=== PATIENT | female | born 1960 | race Hispanic/Latino ===

== ENCOUNTER 2018-05-21 09:55 | Emergency (ER) | payer OTHER ==
--- OUTSIDE RECORDS SUMMARY | 2018-05-21 09:57 | XMS REPORT | Clinical Summary ---
:1960 Author Organization [facility] Address [address] [place] [address] Care Team Providers Name Role Phone Alexandrea Pandey Primary Care Provider Allergies Active Allergy Reactions Severity Noted Date Comments Hydrocodone 11/02/2016 Current Medications Prescription Sig. Disp. Refills Start Date End Date Status lisinopril 08/12/2016 Active (PRINIVIL,ZESTRIL) 5 mg tablet levothyroxine 07/28/2016 Active (SYNTHROID, LEVOXYL) 25 mcg tablet [id number]-ru 10/21/2016 Active xamethasone (MAXITROL) 3.5mg/mL-10,000 unit/mL-0.1 % ophthalmic suspension naproxen (NAPROSYN) Take 1 tablet 60 tablet 0 11/02/2016 11/02/2017 500 MG (500 mg total) tabletIndications: by mouth 2 (two) Left knee pain, times a day. unspecified chronicity traMADol (ULTRAM) 50 Take 1 tablet 30 tablet 0 04/27/2018 05/07/2018 mg tablet (50 mg total) by mouth every 6 (six) hours as needed for moderate pain for up to 10 days. Active Problems Problem Noted Date Arthritis of both knees 05/13/2017 Chronic pain of both knees 05/13/2017 Internal derangement of knee 11/02/2016 Primary osteoarthritis of left knee 11/02/2016 Left knee pain 11/02/2016 Arthritis 11/02/2016 Encounters Date Type Specialty Care Team Description 05/16/2018 Hospital Encounter Radiology Vince Benítez, Internal derangement MD of right knee 04/28/2018 Procedure Pass Radiology 04/27/2018 Office Visit Orthopedic Surgery Vince Benítez, Internal derangement of right knee (Primary Dx); Arthritis of both knees; Internal derangement of left knee after 05/20/2017 Family History Medical History Relation Name Comments Diabetes Brother Cancer Mother Relation Name Status Comments Brother Mother Social History Tobacco Use Types Packs/Day Years Used Date Passive Smoke Exposure - Never Smoker Sex Assigned at Date Recorded Not on file Last Filed Vital Signs Not on file Plan of Treatment Date Type Specialty Care Team Description 05/25/2018 Office Visit Orthopedic Surgery Vince Benítez MD [address] [place] [address] [place] [address] [phone] Health Maintenance Due Date Last Done Comments CERVICAL CANCER SCREENING 1982 BREAST CANCER SCREENING 2011 COLON CANCER SCREENING 2011 SHINGRIX VACCINE (#1) 2011 INFLUENZA VACCINE 02/23/2018 Procedures Procedure Name Priority Date/Time Associated Diagnosis Comments MRI KNEE WO Routine 05/16/2018 1:19 PM Internal derangement Results for this CONTRAST RIGHT CDT of right knee procedure are in the results section. after 05/20/2017 Results MRI Knee Right Wo Contrast (05/16/2018 1:19 PM) Narrative Performed At EXAMINATION:MRI KNEE WO CONTRAST RIGHT [facility] CLINICAL HISTORY:M23.91 Unspecified internal derangement of right knee, painpopping knee TECHNIQUE:Multiplanar multisequence MR imaging of the knee was performed without contrast. COMPARISON:05/12/2017 FINDINGS: 1. Cruciate ligaments: Mild mucinous degeneration of the anterior cruciate ligament without evidence of a tear. Posterior cruciate ligament is intact. Ganglion formation along the length of the mid substance of the posterior cruciate ligament and a typical location for ganglion cyst formation. 2. Collateral ligaments: Medial collateral ligament is intact. Fibular collateral ligament and biceps femoris tendon are intact. 3. Medial Meniscus: Complex degenerative tear of the posterior horn extending from just medial to the root attachment into the body of the medial meniscus. The meniscus is slightly extruded and there is maceration of the body with tearing of the coronary ligaments of the deep MCL complex. No definite displaced meniscal tissue is seen within the notch or in the gutter. Small cysts are noted along the posterior horn. 4. 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 There is multifocal grade IV chondromalacia of the posterior cartilage of the medial femoral condyle with cystic change and edema of the subchondral bone plate. 5. Lateral Meniscus: Degenerative nondisplaced horizontal tear extending to the inferior articular surface of the posterior horn of the lateral meniscus as seen on series 5, image 14 and into the lateral meniscal body. This is superimposed on a background of diffuse intrasubstance degeneration. Free edge radial tearing of the body. 6. Lateral Compartment Cartilage: Diffuse low-grade chondral loss with some more moderate partial thickness chondromalacia involving the posterior cartilage of the lateral femoral condyle as seen on series 4, image 19 and small high-grade chondral fissures of the central tibial plateau cartilage. Minimal edema is noted deep to the intercondylar eminence. 7. Patellofemoral Compartment: Small high-grade chondral fissures involving the median ridge and paramedian lateral facet as seen on series 3, image 9. Small foci of high-grade chondromalacia involving the superolateral trochlear cartilage. 8. Extensor mechanism: Patella gabriel. Edema in the superolateral aspect of Hoffa 's fat pad. Extensor mechanism demonstrates tendinosis, particularly of the quadriceps tendon without evidence of a tear.] Lower intact. 9. Effusion: Small to moderate knee joint effusion. Diffuse synovitis. No discrete intra-articular body is seen within the joint. 10. Bone marrow: Bone marrow edema as above. No definite suspicious bony lesion. 11. Soft tissues: Surgical semitendinosus tendinosis at the posteromedial corner of the knee. Ganglion cyst formation at the origin of the medial head of gastrocnemius. IMPRESSION: 1.Moderate medial femorotibial osteoarthrosis with high-grade chondromalacia, subchondral bone plate edema, and a degenerative extruded medial meniscal tear. 2.Mild lateral femorotibial osteoarthrosis with a degenerative nondisplaced lateral meniscal tear. 3.Mild patellofemoral osteoarthrosis. 4.Patella gabriel with extensor mechanism tendinosis and superolateral Hoffa' s fat pad edema which can be seen with lateral femoral condylar patellar friction syndrome. 5.Moderate size knee joint effusion with diffuse synovitis. [facility]-[id number] Procedure Note [facility], Radiology Results Incoming - 05/16/2018 1:47 PM CDT EXAMINATION: MRI KNEE WO CONTRAST RIGHT CLINICAL HISTORY: M23.91 Unspecified internal derangement of right knee, pain popping knee TECHNIQUE: Multiplanar multisequence MR imaging of the knee was performed without contrast. COMPARISON: 05/12/2017 FINDINGS: 1. Cruciate ligaments: Mild mucinous degeneration of the anterior cruciate ligament without evidence of a tear. Posterior cruciate ligament is intact. Ganglion formation along the length of the mid substance of the posterior cruciate ligament and a typical location for ganglion cyst formation. 2. Collateral ligaments: Medial collateral ligament is intact. Fibular collateral ligament and biceps femoris tendon are intact. 3. Medial Meniscus: Complex degenerative tear of the posterior horn extending from just medial to the root attachment into the body of the medial meniscus. The meniscus is slightly extruded and there is maceration of the body with tearing of the coronary ligaments of the deep MCL complex. No definite displaced meniscal tissue is seen within the notch or in the gutter. Small cysts are noted along the posterior horn. 4. 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 There is multifocal grade IV chondromalacia of the posterior cartilage of the medial femoral condyle with cystic change and edema of the subchondral bone plate. 5. Lateral Meniscus: Degenerative nondisplaced horizontal tear extending to the inferior articular surface of the posterior horn of the lateral meniscus as seen on series 5, image 14 and into the lateral meniscal body. This is superimposed on a background of diffuse intrasubstance degeneration. Free edge radial tearing of the body. 6. Lateral Compartment Cartilage: Diffuse low-grade chondral loss with some more moderate partial thickness chondromalacia involving the posterior cartilage of the lateral femoral condyle as seen on series 4, image 19 and small high-grade chondral fissures of the central tibial plateau cartilage. Minimal edema is noted deep to the intercondylar eminence. 7. Patellofemoral Compartment: Small high-grade chondral fissures involving the median ridge and paramedian lateral facet as seen on series 3, image 9. Small foci of high-grade chondromalacia involving the superolateral trochlear cartilage. 8. Extensor mechanism: Patella gabriel. Edema in the superolateral aspect of Hoffa 's fat pad. Extensor mechanism demonstrates tendinosis, particularly of the quadriceps tendon without evidence of a tear.] Lower intact. 9. Effusion: Small to moderate knee joint effusion. Diffuse synovitis. No discrete intra-articular body is seen within the joint. 10. Bone marrow: Bone marrow edema as above. No definite suspicious bony lesion. 11. Soft tissues: Surgical semitendinosus tendinosis at the posteromedial corner of the knee. Ganglion cyst formation at the origin of the medial head of gastrocnemius. IMPRESSION: 1. Moderate medial femorotibial osteoarthrosis with high-grade chondromalacia , subchondral bone plate edema, and a degenerative extruded medial meniscal tear. 2. Mild lateral femorotibial osteoarthrosis with a degenerative nondisplaced lateral meniscal tear. 3. Mild patellofemoral osteoarthrosis. 4. Patella gabriel with extensor mechanism tendinosis and superolateral Hoffa's fat pad edema which can be seen with lateral femoral condylar patellar friction syndrome. 5. Moderate size knee joint effusion with diffuse synovitis. [facility]-[id number] Performing Organization Address City/State/Zipcode Phone Number [facility] [address] [place] [address] after 05/20/2017 Insurance Payer Benefit Plan / Group Subscriber ID Type Phone Address [facility]WORK xxxxxxxxxxx [facility] [place] [phone] [place] [address]
--- NOTE | 2018-05-21 13:00 | ER ---
Nurse's Notes [facility] Name: Ladan Greer Age: 58 yrs Sex: Female : 1960 Arrival Date: 05/21/2018 Time: 09:57 Bed Waiting Private MD: Diagnosis: Presentation: 05/21 10:04 Presenting complaint: Patient states: Cough, congestion, body aches, since this AM with aj vomiting x 2 episodes this AM. Transition of care: patient was not received from another setting of care. Onset of symptoms was May 21, 2018. Risk Assessment: Do you want to hurt yourself or someone else? Patient reports no desire to harm self or others. Initial Sepsis Screen: Does the patient meet any 2 criteria? No. Patient's initial sepsis screen is negative. Does the patient have a suspected source of infection? No. Patient's initial sepsis screen is negative. Care prior to arrival: None. 10:04 Method Of Arrival: Wheelchair aj 10:04 Acuity: VENITA 3 aj Triage Assessment: 10:06 General: Appears in no apparent distress. comfortable, Behavior is calm, cooperative, aj appropriate for age. Pain: Denies pain. EENT: Reports nasal congestion nasal discharge. Neuro: Level of Consciousness is awake, alert, obeys commands, Oriented to person, place, time, situation, Appropriate for age. Respiratory: Airway is patent Respiratory effort is even, unlabored, Respiratory pattern is regular, symmetrical. GI: Reports vomiting. Derm: Skin is intact, is healthy with good turgor, Skin is pink, warm \T\ dry. normal. Historical: - Allergies: 10:06 Hydrocodone-Acetaminophen; aj - Home Meds: 10:06 None [Active]; aj - PMHx: 10:06 Hypothyroidism; aj - PSHx: 10:06 None; aj - Immunization history:: Adult Immunizations up to date. - Social history:: Smoking status: Patient/guardian denies using tobacco. - Ebola Screening: : Patient negative for fever greater than or equal to 101.5 degrees Fahrenheit, and additional compatible Ebola Virus Disease symptoms Patient denies exposure to infectious person Patient denies travel to an Ebola-affected area in the 21 days before illness onset No symptoms or risks identified at this time. Vital Signs: 10:06 BP 158 / 88; Pulse 79; Resp 16; Temp 98.7(O); Pulse Ox 99% on R/A; Weight 67.13 kg; aj Height 5 ft. 2 in. (157.48 cm); 10:06 Body Mass Index 27.07 (67.13 kg, 157.48 cm) aj ED Course: 09:57 Patient arrived in ED. rg4 10:05 Triage completed. aj 10:06 Arm band placed on left wrist. Patient placed in waiting room, Patient notified of wait aj time. Labs ordered per protocol. 12:05 Patient's name was called from ER lobby. No response. aj 12:14 Patient's name was called from ER lobby. No response. aj 12:59 Chuy Correa MD is Attending Physician. aj 12:59 Patient's name was called from ER lobby. No response. aj Administered Medications: No medications were administered Outcome: 12:59 Eloped from waiting room, before seeing physician Time discovered patient gone: April aj 2017 at 12:59 12:59 Patient left the ED. aj Signatures: Arabella Zuluaga, RN RN Kalani James rg4
== END 2018-05-21 12:59 | disposition left against medical advice (07) ==
LOC: ER 09:55
DX: Z53.21 Procedure and treatment not carried out due to patient leaving prior to being seen by health care provider (principal)
CPT/HCPCS: 87804; 99282

== ENCOUNTER 2022-01-02 09:52 | Emergency (ER) | payer OTHER ==
--- OUTSIDE RECORDS SUMMARY | 2022-01-02 09:54 | XMS REPORT | Clinical Summary ---
:1960 Author Organization [facility] MD [place] Address [address] [place] [address] Care Team Providers Name Role Phone Jazzmine Conley MD Primary Care Provider [phone] Carolyn Martinez MD Unavailable Allergies Active Allergy Reactions Severity Noted Date Comments Hydrocodone Rash Low 02/11/2021 Medications Medication Sig Dispensed Refills Start Date End Date Status cholecalciferol, Take 400 Units by 0 Active vitamin D3, (Vitamin mouth. D3) 5,000 units tab tablet Active Problems Problem Noted Date Abnormal findings on diagnostic imaging of breast 01/23 Overview: Imaging performed at [facility]: 12/31/2020 [facility] - 6-8 mm LEFT nodular density appearing slightly larger than 2019. - No microcalcifications. - No susipcious right breast findings. - LDMMG in 6 months recommended. Encounters Date Type Specialty Care Team Description 02/11/2021 Ancillary Procedure Radiology Brandee Conley Cancer Jazzmine Awad MD 02/11/2021 Ancillary Procedure Radiology Brandee Conley Cancer Jazzmine Awad MD 02/11/2021 Office Visit Breast Surgical Brandee Conley Abnormal f indings on Oncology vaishnavi Brooks robles garrett of breast (Primary Dx) 02/11/2021 [facility] Patient Access Services 02/11/2021 Ancillary Procedure Radiology Jerardo Webb Abnorma [place] findings on PA diagnostic imag ing of breast 02/11/2021 Ancillary Procedure Radiology Jerardo Webb Abnorma l findings on PA diagnostic imag ing of breast 02/11/2021 Travel 02/10/2021 Orders Only Breast Surgical Brandee Conley Oncology Jazzmine Awad MD 02/10/2021 Orders Only Breast Surgical Jerardo Webb, Saji fi ndings on Oncology DEMETRI diagnostic imag ing of breast (Primary Dx) 02/09/2021 Orders Only Breast Surgical Brandee Conley Oncology Jazzmine Awad MD after 01/02/2021 Immunizations Name Administration Dates Next Due Scarlett SARS-CoV-2 Vaccination 10/23/2020 Surgical History Surgery Date Site/Laterality Comments ANTERIOR CRUCIATE LIGAMENT REPAIR Left HAND SURGERY Right Medical History Medical History Date Comments Hypertension Family History Medical History Relation Name Comments Liver cancer Mother Uterine cancer Mother Relation Name Status Comments Mother Social History Tobacco Use Types Packs/Day Years Used Date Never Smoker Smokeless Tobacco: Never Used Alcohol Use Standard Drinks/Week Comments Never 0 (1 standard drink = 0.6 oz pure alcoho l) Alcohol Habits Answer Date Recorded How often do you have a drink containing alcohol? Never 02/13/2021 How many drinks containing alcohol do you have on a typical Not asked day when you are drinking? How often do you have six or more drinks on one occasion? No t asked Comment: Not asked Sex Assigned at Date Recorded Not on file Job Start Date Occupation Industry Not on file Not on file Not on file Obstetrics History Para Term AB IAB SAB Ectopic Multiple Living Live Births 4 3 Date Outcome GA Total Labor/2nd/3rd Weight Sex Delivery Anes PTL Victoria A 1 A5 Name Clin Labor Para Para Para Comments Menarche - age 14 Menopause - age 54, natural Parity - age 17, - 5 years OCP - none Hormones - none Last Filed Vital Signs Vital Sign Reading Time Taken Comments Blood Pressure 144/84 02/11/2021 1:10 PM CDT Pulse 88 02/11/2021 1:10 PM CDT Temperature 37.1 C (98.8 F) 02/11/2021 1:10 PM CDT Respiratory Rate - - Oxygen Saturation 99% 02/11/2021 1:10 PM CDT Inhaled Oxygen Concentration - - Weight 68.9 kg (151 lb 14.4 oz) 02/11/2021 1:10 PM CDT Height 155 cm (5' 1.02") 02/11/2021 1:10 PM CDT Body Mass Index 28.68 02/11/2021 1:10 PM CDT Plan of Treatment Health Maintenance Due Date Last Done Comments COVID-19 Vaccination (2 - Moderna 3-dose series) 11/20/2020 10/23/2020 Procedures Procedure Name Priority Date/Time Associated Comments Diagnosis US BREAST COMPLETE Routine 02/11/2021 10:06 AM Abnormal findin gs Results for this BILATERAL CDT on diagnostic procedure are in imaging of breast the result s section. MAMMO DIGITAL Routine 02/11/2021 8:58 AM Abnormal findings Re sults for this DIAGNOSTIC BILATERAL CDT on diagnostic proced ure are in [facility] imaging of breast the result s section. after 01/02/2021 Results US Breast Complete - Bilateral (02/11/2021 10:06 AM CDT) Anatomical Region Laterality Modality Breast Bilateral Ultrasound Specimen (Source) Anatomical Collection Method Collection Time Re ceived Time Location / / Volume Laterality 02/11/2021 10:43 AM CDT Impressions 02/11/2021 10:43 AM CDT There is no sonographic evidence of malignancy. Follow-up mammogram in 1 year is recomme nded. BI-RADS Category 2: Benign Finding(s) Narrative 02/11/2021 10:43 AM CDT CLINICAL INDICATION: Prior abnormal screening mammogram. FILMS COMPARED: The present examination has been compare d to a prior imaging study performed at [facility] on 02/11/2021. TECHNIQUE: Real-time sonographic imaging of both br easts (including all 4 quadrants and retroareolar region) was performed. FINDINGS: Tiny benign cysts are present bilaterall y, including a 9 mm cluster of microcysts in the left breast at 2:00, 8 cmfn that corresponds with the index finding from the 12/2020 screening mammo gram. No suspicious findings are present in either breast. I notified the patie nt of the findings and their significance at the completion of today's imaging. Procedure Note Nikolas Delatorre MD - 02/11/2021 CLINICAL INDICATION: Prior abnormal screening mammogram. FILMS COMPARED: The present examination has been compare d to a prior imaging study performed at [facility] on 02/11/2021. TECHNIQUE: Real-time sonographic imaging of both br easts (including all 4 quadrants and retroareolar region) was performed. FINDINGS: Tiny benign cysts are present bilaterall y, including a 9 mm cluster of microcysts in the left breast at 2:00, 8 cmfn that corresponds with the index finding from the 12/2020 screening mammo gram. No suspicious findings are present in either breast. I notified the patien t of the findings and their significance at the completion of today's imaging. IMPRESSION: There is no sonographic evidence of nahid gnancy. Follow-up mammogram in 1 year is recomme nded. BI-RADS Category 2: Benign Finding(s) Jerardo MOSQUERA IMG US ORDERABLES Mammography Digital Diagnostic Bilateral with [place] (02/11/2021 8:58 AM CDT) Anatomical Region Laterality Modality Breast Bilateral Mammography Specimen (Source) Anatomical Collection Method Collection Time Re ceived Time Location / / Volume Laterality 02/11/2021 10:40 AM CDT Impressions 02/11/2021 10:40 AM CDT There is no mammographic evidence of malignancy. Follow-up mammogram in 1 year is recomme nded. BI-RADS Category 2: Benign Finding(s) Narrative 02/11/2021 10:40 AM CDT CLINICAL INDICATION: Abnormal screening mammogram from an out side institution. MAMMO DIGITAL DIAGNOSTIC BILATERAL W [facility]IER O Digital Mammogram evaluated with Compute r Aided Detection (CAD). COMPARISON: The present examination has been compare d to a prior imaging study performed at an outside location on 02/11/2021. FINDINGS: The breasts are heterogeneously dense, w hich may obscure small masses. Bilateral punctate masses represent tiny benign cysts on today's ultrasound (including the index finding from the screening mammogram). There is no suspicious mass, asymmetry, calcifica tion, or distortion in either breast. I notified the patient of these results an d their significance at the completion of today's exam. Tomosynthesis performed in CC and MLO pr ojections. Procedure Note Nikolas Delatorre MD - 02/11/2021 CLINICAL INDICATION: Abnormal screening mammogram from an out side institution. MAMMO DIGITAL DIAGNOSTIC BILATERAL W ELIER O Digital Mammogram evaluated with Compute r Aided Detection (CAD). COMPARISON: The present examination has been compare d to a prior imaging study performed at an outside location on 02/11/2021. FINDINGS: The breasts are heterogeneously dense, w hich may obscure small masses. Bilateral punctate masses represent tiny benign cysts on today's ultrasound (including the index finding from the screening mammogram). There is no suspicious mass, asymmetry, calcifica tion, or distortion in either breast. I notified the patient of these results an d their significance at the completion of today's exam. Tomosynthesis performed in CC and MLO pr ojections. IMPRESSION: There is no mammographic evidence of mal ignancy. Follow-up mammogram in 1 year is recomme nded. BI-RADS Category 2: Benign Finding(s) Jerardo MOSQUERA IMG MAMMOGRAPHY ORDERABLES after 01/02/2021 Insurance Payer Benefit Plan / Subscriber ID Effective Dates Phone Addre ss Type Group [employer] [facility] [id number] 2015-Present [id number] [place] [address] [address] [place], [place] [id number] Ladan Greer Personal/Family Self [address] [place] [address] ([address] [place], [place] [id number] Care Teams Surfacing Technician Relationship Specialty Start Date End Date Brandee Conley PCP - General Breast Surgery 01/24/21 MD Ritesh [address] [place] [id number] Rachelle Martinez, PCP - External Referring Obstetrics/Gynecology 01/24/[address] [place] [id number]
--- OUTSIDE RECORDS SUMMARY | 2022-01-02 09:56 | XMS REPORT | Continuity of Care Document ---
:1960 Author Organization [facility] t Address [address] [place] [address] Care Team Providers Name Role Phone [phone] Primary Care Physician Unavailable SYSTEM, NOT IN Attending Clinician Unavailable SEAN Attending Clinician Unavailable Sean PARRA Attending Clinician Pob, Lab Main Attending Clinician Unavailable Doctor Unassigned, Name Attending Clinician Unavailable SADE Attending Clinician Unavailable Meliza PARRA Attending Clinician MELIZA Attending Clinician Unavailable COLLEEN Attending Clinician Unavailable RADIOLOGY Attending Clinician Unavailable Yessi PARRA Attending Clinician YESSI Attending Clinician Unavailable Jazzmine Conley MD Attending Clinician [phone] JAZZMINE CONLEY Attending Clinician Unavailable Frandy MOSQUERA Attending Clinician FRANDY Attending Clinician Unavailable Armani Dill Attending Clinician Elton Melendez MD Attending Clinician Elton MELENDEZ Attending Clinician Unavailable Armani KIM Attending Clinician Unavailable SEAN Kentitting Clinician Unavailable Payers Payer Name Policy Type Policy Number Effective Date Expiration Date Armani CABALLERO II [id number] 2015 00:00:00 Problems Condition Condition Condition Status Onset Resolution Last Treating Co mments Source Name Details Category Date Date Treatment Clinician Date Abnormal Abnormal Disease Active 2021-0 Overview: Un lexus findings findings 7-19 Formattin ity of on on 00:00: g of this [place] diagnostic diagnostic 00 note imaging of imaging of might be Anderso breast breast different n from the Cancer original. Center Imaging performed at [facility] t: 1 [facility]- 6-8 mm LEFT nodular density appearing slightly larger than 2019.- No microcalc ification s.- No susipciou s right breast findings. - LDMMG in 6 months recommend ed. Chest pain Chest pain Disease Active 2014-07 U nivers 09-21 ity of 00:00: [place] 00 Medical Branch Allergies, Adverse Reactions, Alerts Allergy Allergy Status Severity Reaction(s) Onset Inactive Treating Comm ents Source Name Type Date Date Clinician Hydrocod Propensi Active Rash Univer s one ty to 02-11 ity of adverse 00:00: [place] reaction 00 MD [facility] HYDROCOD DRUG Active ITCHING 2014-07 Univers ONE INGREDI 09-21 ity of 00:00: [place] 00 Medical Branch Hydrocod Propensi Active Itching 2014-07 Unive rs one ty to 09-21 ity of adverse 00:00: [place] reaction 00 Medical s Branch Family History Family Member Diagnosis Comments Start Date Stop Date Source Natural mother Liver cancer [facility] [place] [facility] [place] [facility] Social History Social Habit Start Date Stop Date Quantity Comments Source History [facility] o [facility] Alcohol Std [facility] History [facility] University o f Alcohol Binge [facility] History [facility] o f Alcohol Comment [place] [facility] Exposure to 2021-11-03 2021-11-13 Not sure [facility] SARS-CoV-2 00:00:00 15:36:[address] [facility] [place] (event) Branch Tobacco use and 2021-02-13 2021-02-13 Smokeless tobacco Un iversity of exposure 00:00:00 00:00:00 non-user [facility] Alcohol intake 2021-02-13 2021-02-13 Lifetime University of 00:00:00 00:00:00 non-drinker [facility] (finding) [facility] History SDOH 2021-02-13 2021-02-13 1 University o f Alcohol Frequency 00:00:00 00:00:00 [facility] [place] [facility] Sex Assigned At [birth year] Universit y of 00:00:00 00:00:00 [facility] Smoking Status Start Date Stop Date Source Never smoker [facility] Medical Branch Medications Ordered Filled Start Stop Current Ordering Indication Dosage Frequency Signature Comments Components Source Medication Medication Date Date Medication? Clinician (SIG) Name Name cholecalcif Yes 400U Take 400 Un lexus lyndsay, 7-20 Units by ity of vitamin D3, 13:17: mouth. Donald s (Vitamin 46 D3) 5,000 Anderso units tab n tablet Cancer Center triamcinolo 2020- No 40mg Unive rs ne 09-16 ity of acetonide 22:00: 20:54 [place] (KENALOG) 00 :00 Medical injection Branch 40 mg triamcinolo 2020- No 40mg 40 mg, Uni vers ne 09-16 Intra-jacqueline ity of acetonide 22:00: 20:54 [place], [place] (KENALOG) 00 :00 ONCE, 1 Medical injection dose, Mon Branc h 40 mg 09/16/20 at 1600, Routine triamcinolo 2020- No 40mg Unive rs ne 09-16 ity of acetonide 22:00: 20:54 [place] (KENALOG) 00 :00 Medical injection Branch 40 mg triamcinolo 2020- No 40mg 40 mg, Uni vers ne 09-16 Intra-jacqueline ity of acetonide 22:00: 20:54 [place], [place] (KENALOG) 00 :00 ONCE, 1 Medical injection dose, Mon Branc h 40 mg 09/16/20 at 1600, Routine levothyroxi 2019-07 Yes 50ug Take 50 Uni vers ne 0-26 mcg by ity of (SYNTHROID) 19:50: mouth [place] 50 mcg 10 every Medical tablet morning. Branch levothyroxi 2019-07 Yes 50ug Take 50 Uni vers ne 0-26 mcg by ity of (SYNTHROID) 19:50: mouth [place] 50 mcg 10 every Medical tablet morning. Branch levothyroxi 2019-07 Yes 50ug Take 50 Uni vers ne 0-26 mcg by ity of (SYNTHROID) 19:50: mouth [place] 50 mcg 10 every Medical tablet morning. Branch levothyroxi 2019-07 Yes 50ug Take 50 Uni vers ne 0-26 mcg by ity of (SYNTHROID) 19:50: mouth [place] 50 mcg 10 every Medical tablet morning. Branch levothyroxi 2019-07 Yes 50ug Take 50 Uni vers ne 0-26 mcg by ity of (SYNTHROID) 19:50: mouth [place] 50 mcg 10 every Medical tablet morning. Branch levothyroxi 2019-07 Yes 50ug Take 50 Uni vers ne 0-26 mcg by ity of (SYNTHROID) 19:50: mouth [place] 50 mcg 10 every Medical tablet morning. Branch levothyroxi 2019-07 Yes 50ug Take 50 Uni vers ne 0-26 mcg by ity of (SYNTHROID) 19:50: mouth [place] 50 mcg 10 every Medical tablet morning. Branch levothyroxi 2019-07 Yes 50ug Take 50 Uni vers ne 0-26 mcg by ity of (SYNTHROID) 19:50: mouth [place] 50 mcg 10 every Medical tablet morning. Branch levothyroxi 2019-07 Yes 50ug Take 50 Uni vers ne 0-26 mcg by ity of (SYNTHROID) 19:50: mouth [place] 50 mcg 10 every Medical tablet morning. Branch levothyroxi 2019-07 Yes 50ug Take 50 Uni vers ne 0-26 mcg by ity of (SYNTHROID) 19:50: mouth [place] 50 mcg 10 every Medical tablet morning. Branch levothyroxi 2019-07 Yes 50ug Take 50 Uni vers ne 0-26 mcg by ity of (SYNTHROID) 19:50: mouth [place] 50 mcg 10 every Medical tablet morning. Branch levothyroxi 2019-07 Yes 50ug Take 50 Uni vers ne 0-26 mcg by ity of (SYNTHROID) 19:50: mouth [place] 50 mcg 10 every Medical tablet morning. Branch levothyroxi 2019-07 Yes 50ug Take 50 Uni vers ne 0-26 mcg by ity of (SYNTHROID) 19:50: mouth [place] 50 mcg 10 every Medical tablet morning. Branch levothyroxi 2019-07 Yes 50ug Take 50 Uni vers ne 0-26 mcg by ity of (SYNTHROID) 19:50: mouth [place] 50 mcg 10 every Medical tablet morning. Branch levothyroxi 2019-07 Yes 50ug Take 50 Uni vers ne 0-26 mcg by ity of (SYNTHROID) 19:50: mouth [place] 50 mcg 10 every Medical tablet morning. Branch levothyroxi 2019-07 Yes 50ug Take 50 Uni vers ne 0-26 mcg by ity of (SYNTHROID) 19:50: mouth [place] 50 mcg 10 every Medical tablet morning. Branch levothyroxi 2019-07 Yes 50ug Take 50 Uni vers ne 0-26 mcg by ity of (SYNTHROID) 19:50: mouth [place] 50 mcg 10 every Medical tablet morning. Branch levothyroxi 2019-07 Yes 50ug Take 50 Uni vers ne 0-26 mcg by ity of (SYNTHROID) 19:50: mouth [place] 50 mcg 10 every Medical tablet morning. Branch levothyroxi 2019-07 Yes 50ug Take 50 Uni vers ne 0-26 mcg by ity of (SYNTHROID) 19:50: mouth [place] 50 mcg 10 every Medical tablet morning. Branch levothyroxi 2019-07 Yes 50ug Take 50 Uni vers ne 0-26 mcg by ity of (SYNTHROID) 19:50: mouth [place] 50 mcg 10 every Medical tablet morning. Branch levothyroxi 2019-07 Yes 50ug Take 50 Uni vers ne 0-26 mcg by ity of (SYNTHROID) 19:50: mouth [place] 50 mcg 10 every Medical tablet morning. Branch levothyroxi 2019-07 Yes 50ug Take 50 Uni vers ne 0-26 mcg by ity of (SYNTHROID) 19:50: mouth [place] 50 mcg 10 every Medical tablet morning. Branch levothyroxi 2019-07 Yes 50ug Take 50 Uni vers ne 0-26 mcg by ity of (SYNTHROID) 19:50: mouth [place] 50 mcg 10 every Medical tablet morning. Branch levothyroxi 2019-07 Yes 50ug Take 50 Uni vers ne 0-26 mcg by ity of (SYNTHROID) 19:50: mouth [place] 50 mcg 10 every Medical tablet morning. Branch levothyroxi 2019-07 Yes 50ug Take 50 Uni vers ne 0-26 mcg by ity of (SYNTHROID) 19:50: mouth [place] 50 mcg 10 every Medical tablet morning. Branch levothyroxi 2019-07 Yes 50ug Take 50 Uni vers ne 0-26 mcg by ity of (SYNTHROID) 19:50: mouth [place] 50 mcg 10 every Medical tablet morning. Branch levothyroxi 2019- Yes 50ug Take 50 Uni vers ne 0-26 mcg by ity of (SYNTHROID) 19:50: mouth [place] 50 mcg 10 every Medical tablet morning. Branch levothyroxi 2019-07 Yes 50ug Take 50 Uni vers ne 0-26 mcg by ity of (SYNTHROID) 19:50: mouth [place] 50 mcg 10 every Medical tablet morning. Branch levothyroxi 2019-07 Yes 50ug Take 50 Uni vers ne 0-26 mcg by ity of (SYNTHROID) 19:50: mouth [place] 50 mcg 10 every Medical tablet morning. Branch levothyroxi 2019-07 Yes 50ug Take 50 Uni vers ne 0-26 mcg by ity of (SYNTHROID) 19:50: mouth [place] 50 mcg 10 every Medical tablet morning. Branch levothyroxi 2019-07 Yes 50ug Take 50 Uni vers ne 0-26 mcg by ity of (SYNTHROID) 19:50: mouth [place] 50 mcg 10 every Medical tablet morning. Branch levothyroxi 2019-07 Yes 50ug Take 50 Uni vers ne 0-26 mcg by ity of (SYNTHROID) 19:50: mouth [place] 50 mcg 10 every Medical tablet morning. Branch levothyroxi 2019-07 Yes 50ug Take 50 Uni vers ne 0-26 mcg by ity of (SYNTHROID) 14:50: mouth [place] 50 mcg 10 every Medical tablet morning. Branch levothyroxi 2019-07 Yes 50ug Take 50 Uni vers ne 0-26 mcg by ity of (SYNTHROID) 14:50: mouth [place] 50 mcg 10 every Medical tablet morning. Branch levothyroxi 2019-07 Yes 50ug Take 50 Uni vers ne 0-26 mcg by ity of (SYNTHROID) 14:50: mouth [place] 50 mcg 10 every Medical tablet morning. Branch levothyroxi 2019-07 Yes 50ug Take 50 Uni vers ne 0-26 mcg by ity of (SYNTHROID) 14:50: mouth [place] 50 mcg 10 every Medical tablet morning. Branch levothyroxi 2019-07 Yes 50ug Take 50 Uni vers ne 0-26 mcg by ity of (SYNTHROID) 14:50: mouth [place] 50 mcg 10 every Medical tablet morning. Branch levothyroxi Yes 50ug Take 50 Uni vers ne 1-09 mcg by ity of (SYNTHROID) 21:42: mouth [place] 50 mcg 09 every Medical tablet morning. Branch levothyroxi 2017-0 Yes 50ug Take 50 Uni vers ne 1-09 mcg by ity of (SYNTHROID) 21:42: mouth [place] 50 mcg 09 every Medical tablet morning. Branch amoxicillin 2017-0 Yes Univer s 875 mg 1-06 ity of tablet 00:00: [place] [facility] amoxicillin 2017-0 Yes Univer s 875 mg 1-06 ity of tablet 00:00: [place] [address] Medical Branch amoxicillin 2017-0 Yes Univer s 875 mg 1-06 ity of tablet 00:00: [place] 00 Medical Branch amoxicillin 2017-0 Yes Univer s 875 mg 1-06 ity of tablet 00:00: [place] [address] Medical Branch amoxicillin 2017-0 Yes Univer s 875 mg 1-06 ity of tablet 00:00: [place] [address] Medical Branch amoxicillin 2017-0 Yes Univer s 875 mg 1-06 ity of tablet 00:00: [place] [address] Medical Branch amoxicillin 2017-0 Yes Univer s 875 mg 1-06 ity of tablet 00:00: [place] [address] Medical Branch amoxicillin 2017-0 Yes Univer s 875 mg 1-06 ity of tablet 00:00: [place] [address] Medical Branch amoxicillin 2017-0 Yes Univer s 875 mg 1-06 ity of tablet 00:00: [place] [address] Medical Branch amoxicillin 2017-0 Yes Univer s 875 mg 1-06 ity of tablet 00:00: [place] [address] Medical Branch amoxicillin 2017-0 Yes Univer s 875 mg 1-06 ity of tablet 00:00: [place] [address] Medical Branch amoxicillin 2017-0 Yes Univer s 875 mg 1-06 ity of tablet 00:00: [place] [address] Medical Branch amoxicillin 2017-0 Yes Univer s 875 mg 1-06 ity of tablet 00:00: [place] 00 Medical Branch amoxicillin 2017-0 Yes Univer s 875 mg 1-06 ity of tablet 00:00: [place] [address] Medical Branch amoxicillin 2017-0 Yes Univer s 875 mg 1-06 ity of tablet 00:00: [place] 00 Medical Branch amoxicillin 2017-0 Yes Univer s 875 mg 1-06 ity of tablet 00:00: [place] [address] Medical Branch amoxicillin 2017-0 Yes Univer s 875 mg 1-06 ity of tablet 00:00: [place] [address] Medical Branch amoxicillin 2017-0 Yes Univer s 875 mg 1-06 ity of tablet 00:00: [place] 00 Medical Branch amoxicillin 2017-0 Yes Univer s 875 mg 1-06 ity of tablet 00:00: [place] 00 Medical Branch amoxicillin 2017-0 Yes Univer s 875 mg 1-06 ity of tablet 00:00: [place] 00 Medical Branch amoxicillin 2017-0 Yes Univer s 875 mg 1-06 ity of tablet 00:00: [place] [facility] amoxicillin 2017-0 Yes Univer s 875 mg 1-06 ity of tablet 00:00: [place] 00 Medical Branch amoxicillin 2017-0 Yes Univer s 875 mg 1-06 ity of tablet 00:00: [place] 00 Medical Branch amoxicillin 2017-0 Yes Univer s 875 mg 1-06 ity of tablet 00:00: [place] [facility] amoxicillin 2017-0 Yes Univer s 875 mg 1-06 ity of tablet 00:00: [place] [facility] amoxicillin 2017-0 Yes Univer s 875 mg 1-06 ity of tablet 00:00: [place] [facility] amoxicillin 2017-0 Yes Univer s 875 mg 1-06 ity of tablet 00:00: [place] [facility] amoxicillin 2017-0 Yes Univer s 875 mg 1-06 ity of tablet 00:00: [place] 00 Medical Branch amoxicillin 2017-0 Yes Univer s 875 mg 1-06 ity of tablet 00:00: [place] 00 Medical Branch amoxicillin 2017-0 Yes Univer s 875 mg 1-06 ity of tablet 00:00: [place] [address] Medical Branch amoxicillin 2017-0 Yes Univer s 875 mg 1-06 ity of tablet 00:00: [place] [facility] amoxicillin 2017-0 Yes Univer s 875 mg 1-06 ity of tablet 00:00: [place] [facility] amoxicillin 2017-0 Yes Univer s 875 mg 1-06 ity of tablet 00:00: [place] 00 Medical Branch amoxicillin 2017-0 Yes Univer s 875 mg 1-06 ity of tablet 00:00: [place] 00 Medical Branch amoxicillin 2017-0 Yes Univer s 875 mg 1-06 ity of tablet 00:00: [place] 00 Medical Branch amoxicillin 2017-0 Yes Univer s 875 mg 1-06 ity of tablet 00:00: [place] [facility] amoxicillin 2017-0 Yes Univer s 875 mg 1-06 ity of tablet 00:00: [place] 00 Medical Branch amoxicillin 2017-0 Yes Univer s 875 mg 1-06 ity of tablet 00:00: [place] [facility] amoxicillin 2017-0 Yes Univer s 875 mg 1-06 ity of tablet 00:00: [place] [address] Medical Branch lisinopril 2016-1 Yes Univers 5 mg tablet 2-26 ity of 00:00: [place] [facility] lisinopril 2016-1 Yes Univers 5 mg tablet 2-26 ity of 00:00: [place] [facility] lisinopril 2016-1 Yes Univers 5 mg tablet 2-26 ity of 00:00: [place] [facility] lisinopril 2016- Yes Univers 5 mg tablet 2-26 ity of 00:00: [place] [address] Medical Branch lisinopril 2016- Yes Univers 5 mg tablet 2-26 ity of 00:00: [place] [facility] lisinopril 2016- Yes Univers 5 mg tablet 2-26 ity of 00:00: [place] [address] Medical Branch lisinopril 2016- Yes Univers 5 mg tablet 2-26 ity of 00:00: [place] [address] Medical Branch lisinopril 2016- Yes Univers 5 mg tablet 2-26 ity of 00:00: [place] [address] Medical Branch lisinopril 2016- Yes Univers 5 mg tablet 2-26 ity of 00:00: [place] [address] Medical Branch lisinopril 2016- Yes Univers 5 mg tablet 2-26 ity of 00:00: [place] [facility] lisinopril 2016- Yes Univers 5 mg tablet 2-26 ity of 00:00: [place] [address] Medical Branch lisinopril 2016-1 Yes Univers 5 mg tablet 2-26 ity of 00:00: [place] [facility] lisinopril 2016- Yes Univers 5 mg tablet 2-26 ity of 00:00: [place] [facility] lisinopril 2016- Yes Univers 5 mg tablet 2-26 ity of 00:00: [place] [address] Medical Branch lisinopril 2016- Yes Univers 5 mg tablet 2-26 ity of 00:00: [place] [facility] lisinopril 2016- Yes Univers 5 mg tablet 2-26 ity of 00:00: [place] [address] Medical Branch lisinopril 2016-1 Yes Univers 5 mg tablet 2-26 ity of 00:00: [place] [facility] lisinopril 2016- Yes Univers 5 mg tablet 2-26 ity of 00:00: [place] [facility] lisinopril 2016- Yes Univers 5 mg tablet 2-26 ity of 00:00: [place] [facility] lisinopril 2016- Yes Univers 5 mg tablet 2-26 ity of 00:00: [place] [facility] lisinopril 2016- Yes Univers 5 mg tablet 2-26 ity of 00:00: [place] [facility] lisinopril 2016- Yes Univers 5 mg tablet 2-26 ity of 00:00: [place] [facility] lisinopril 2016- Yes Univers 5 mg tablet 2-26 ity of 00:00: [place] [address] Medical Branch lisinopril 2016- Yes Univers 5 mg tablet 2-26 ity of 00:00: [place] [address] Medical Branch lisinopril 2016- Yes Univers 5 mg tablet 2-26 ity of 00:00: [place] [address] Medical Branch lisinopril 2016- Yes Univers 5 mg tablet 2-26 ity of 00:00: [place] [address] Medical Branch lisinopril 2016- Yes Univers 5 mg tablet 2-26 ity of 00:00: [place] [address] Medical Branch lisinopril 2016- Yes Univers 5 mg tablet 2-26 ity of 00:00: [place] [address] Medical Branch lisinopril 2016- Yes Univers 5 mg tablet 2-26 ity of 00:00: [place] [facility] lisinopril 2016- Yes Univers 5 mg tablet 2-26 ity of 00:00: [place] [facility] lisinopril 2016- Yes Univers 5 mg tablet 2-26 ity of 00:00: [place] [facility] lisinopril 2016- Yes Univers 5 mg tablet 2-26 ity of 00:00: [place] [address] Medical Branch lisinopril 2016- Yes Univers 5 mg tablet 2-26 ity of 00:00: [place] [facility] lisinopril 2016- Yes Univers 5 mg tablet 2-26 ity of 00:00: [place] [facility] lisinopril 2016- Yes Univers 5 mg tablet 2-26 ity of 00:00: [place] [facility] lisinopril 2016- Yes Univers 5 mg tablet 2-26 ity of 00:00: [place] [facility] lisinopril 2016-1 Yes Univers 5 mg tablet 2-26 ity of 00:00: [place] 00 Medical Branch lisinopril 2015- Yes Univers 5 mg tablet 2-26 ity of 00:00: [place] 00 Medical Branch lisinopril 2015- Yes Univers 5 mg tablet 2-26 ity of 00:00: [place] 00 Medical Branch Immunizations Ordered Filled Immunization Date Status Comments Sour e Immunization Name Name Scarlett SARS-CoV-2 2020-10-23 Completed Univer sity of Vaccination 00:00:00 [facility] Vital Signs Vital Name Observation Time Observation Value Comments Source Systolic blood 2021-01-16 15:41:00 129 mm[Hg] Univer sity of pressure [place] [facility] Diastolic blood 2021-01-16 15:41:00 79 mm[Hg] Unive rsity of pressure [facility] [place] Branch Heart rate 2021-01-16 15:41:00 76 /min Universi ty of [place] [facility] [place] Body height 2021-01-16 15:25:00 157.5 cm Universi ty [facility] [place] [facility] Body weight 2021-01-16 15:25:00 68.04 kg [facility] [place] [facility] BMI 2021-01-16 15:25:00 27.44 kg/m2 [facility] [place] [facility] Systolic blood 2020-12-25 18:47:00 148 mm[Hg] Univer sity of pressure [place] [facility] Diastolic blood 2020-12-25 18:47:00 91 mm[Hg] Unive rsity of pressure [facility] [place] Branch Heart rate 2020-12-25 18:47:00 78 /min Universi ty [facility] [place] [facility] Body height 2020-12-25 18:44:00 157.5 cm [facility] [place] [facility] Body weight 2020-12-25 18:44:00 68.04 kg [facility] [place] [facility] BMI 2020-12-25 18:44:00 27.44 kg/m2 [facility] [place] [facility] Systolic blood 2020-09-16 20:26:00 139 mm[Hg] Univer sity of pressure [place] [facility] Diastolic blood 2020-09-16 20:26:00 86 mm[Hg] Unive rsity of pressure [facility] [place] [facility] Heart rate 2020-09-16 20:26:00 84 /min [facility] [place] [facility] Body height 2020-09-16 20:21:00 157.5 cm [facility] [place] [facility] Body weight 2020-09-16 20:21:00 68.04 kg [facility] [place] [facility] BMI 2020-09-16 20:21:00 27.44 kg/m2 [facility] [place] [facility] Systolic blood 2020-08-22 16:41:00 135 mm[Hg] Univer sity of pressure [place] [facility] Diastolic blood 2020-08-22 16:41:00 85 mm[Hg] Unive rsity of pressure [place] [facility] Body height 2020-08-22 16:41:00 157.5 cm [facility] [place] [facility] Body weight 2020-08-22 16:41:00 67.586 kg [facility] [place] [facility] BMI 2020-08-22 16:41:00 27.25 kg/m2 Universi ty of [facility] [place] [facility] Systolic blood 2020-08-05 19:50:00 130 mm[Hg] Univer sity of pressure [place] [facility] Diastolic blood 2020-08-05 19:50:00 87 mm[Hg] Unive rsity of pressure [place] [facility] Heart rate 2020-08-05 19:50:00 80 /min [facility] [place] [facility] Body height 2020-08-05 19:50:00 157.5 cm [facility] [place] [facility] Body weight 2020-08-05 19:50:00 67.586 kg [facility] [place] [facility] BMI 2020-08-05 19:50:00 27.25 kg/m2 [facility] [place] [facility] Systolic blood 2020-07-23 15:56:00 146 mm[Hg] Univer sity of pressure [place] [facility] Diastolic blood 2020-07-23 15:56:00 91 mm[Hg] Unive rsity of pressure [place] [facility] Heart rate 2020-07-23 15:56:00 68 /min [facility] [place] [facility] Body height 2020-07-23 15:51:00 157.5 cm [facility] [place] [facility] Body weight 2020-07-23 15:51:00 67.586 kg [facility] ty [facility] [place] [facility] BMI 2020-07-23 15:51:00 27.25 kg/m2 [facility] [place] [facility] Systolic blood 2020-07-11 21:22:00 159 mm[Hg] Univer sity of pressure [facility] [place] [facility] Diastolic blood 2020-07-11 21:22:00 88 mm[Hg] Unive rsity of pressure [facility] [place] Branch Heart rate 2020-07-11 21:22:00 76 /min Universi ty of [place] [facility] Body height 2020-07-11 21:17:00 157.5 cm Universi ty of [facility] [place] [facility] Body weight 2020-07-11 21:17:00 67.586 kg Universi ty of [facility] [place] Branch BMI 2020-07-11 21:17:00 27.25 kg/m2 Universi ty of [place] [facility] Systolic blood 2020-05-20 19:52:00 153 mm[Hg] Univer sity of pressure [facility] [place] Branch Diastolic blood 2020-05-20 19:52:00 88 mm[Hg] Unive rsity of pressure [facility] Heart rate 2020-05-20 19:47:00 76 /min Universi ty of [place] [facility] Body height 2020-05-20 19:47:00 157.5 cm Universi ty of [facility] [place] Branch Body weight 2020-05-20 19:47:00 68.04 kg Universi ty of [facility] [place] Branch BMI 2020-05-20 19:47:00 27.44 kg/m2 Universi ty of [facility] [place] Branch Systolic blood 2021-02-11 18:10:44 144 mm[Hg] Univer [facility]ity of pressure [facility] Diastolic blood 2021-02-11 18:10:44 84 mm[Hg] Unive rsity of pressure [facility] Heart rate 2021-02-11 18:10:44 88 /min Universi ty of [facility] Body temperature 2021-02-11 18:10:44 37.11 Geovanna Univ ersity of [facility] Body height 2021-02-11 18:10:44 155 cm Universi ty of [facility] Body weight 2021-02-11 18:10:44 68.9 kg Universi ty of [facility] BMI 2021-02-11 18:10:44 28.68 kg/m2 [facility]i ty of [facility] Oxygen saturation in 2021-02-11 18:10:44 99 /min University Arterial blood by Claudine jones Pulse oximetry [facility] Procedures Procedure Date / Time Performed Performing Clinician [facility] US ABDOMEN COMPLETE 2021-11-17 13:53:00 [facility] [place] [facility]ENEF[facility] 2021-10-08 13:41:57 Doctor Unassigned, No [facility] ASSIGNMENT OF BENEFITS 2021-07-17 15:09:05 Doctor Unassigned, No [facility] US BREAST COMPLETE 2021-02-11 15:06:00 Jerardo Webb [facility] BILATERAL MD Martínez [facility] Center MAMMO DIGITAL 2021-02-11 13:58:00 [facility] [place] [facility] W MD [facility] [facility] CBC WITH DIFF 2021-01-06 14:19:00 Rad Dickson [facility] PHYSICIAN ORDERS 2021-01-06 05:01:00 Doctor Unassigned, No [facility] Name Medical Branch REFERRAL- 2020-12-17 05:01:00 Doctor Unassigned, No [facility] [place] [facility]QUEST[facility]RESPONSE Name Medical Branch REFERRAL- 2020-11-05 05:01:00 Doctor Unassigned, No [facility] [place] REQUEST[facility]RESPONSE Name Medical Branch REFERRAL- 2020-10-03 06:01:00 Doctor Unassigned, No [facility] [place] REQUEST/RESPONSE Name Medical Branch REFERRAL- 2020-09-25 06:01:00 Doctor Unassigned, No [facility] [place] REQUEST/RESPONSE Name Medical Branch XR ANKLE <3 VW RIGHT 2020-09-16 20:23:39 Bell Melendez [facility] [place] XR KNEE <3 VW LEFT 2020-07-23 16:29:16 James Kim [facility] Medical Branch XR KNEE <3 VW LEFT 2020-07-11 21:39:37 James Kim [facility] [place] XR ANKLE <3 VW RIGHT 2020-07-11 21:39:16 James Kim [facility] [place] COMP. METABOLIC PANEL 2020-06-05 14:40:00 Rad Dickson [facility] ([id number]) Medical Branch LIPID PANEL 2020-06-05 14:40:00 Rad Dickson [facility] ([id number])(TOTAL [facility] CHOLESTEROL, TRIGLYCERIDES, HDL) CBC WITH DIFF 2020-06-05 14:40:00 Rad Dickson [facility] XR KNEE 3 VW BILATERAL 2020-05-20 19:17:12 MelendezBell lewis El[facility] ASSIGNMENT OF BENEFITS 2020-05-20 18:47:00 Doctor Unassigned, No [facility] Name [facility] Plan of Care Planned Activity Planned Date Details Comments Source Future Scheduled 2021-07-04 COVID-19 Vaccination [facility] Test 06:40:28 (2 - Moderna 3-dose MD [place] son Cancer series) [code = Center COVID-19 Vaccination (2 - Moderna 3-dose series)] Encounters Start End Encounter Admission Attending Care Care Encounter Source Date/Time Date/Time Type Type Clinicians Facility Department ID 2021-01-16 Outpatient SYSTEM, [facility] [id number] 14:28:06 PROVIDER Frankie crews 2021-11-17 2021-11-17 Outpatient Betzy ESTRADA [facility] [id number] Univers 08:01:46 23:59:00 MARGIE [facility] 2021-11-17 2021-11-17 [facility] 1.2.840.114 [id number] Univers 08:00:00 23:59:00 Encounter Margie GONZALEZ 350.1.13.10 [facility] 4.2.7.2.686 [facility] [id number] [facility] [address] 2021-11-17 2021-11-17 Outpatient Betzy ESTRADA [facility] [id number] 7Q-20 Univers 00:00:00 00:00:00 MARGIE [id number] [facility] 2021-10-10 2021-10-10 Outpatient Betzy ESTRADA [facility] [id number] 7Q-20 Univers 00:00:00 00:00:00 MARGIE [id number] [facility] 2021-10-10 2021-10-10 Outpatient Betzy ESTRADA [facility] [id number] Univers 00:00:00 00:00:[address] [facility] 2021-10-08 2021-10-08 [place] Assessor Neva, Adc Lab Main [facility] 1.2.8 40.114 [id number] Univers 09:00:00 09:15:00 Visit Margie Estrada 350.1.13.10 it[place] [phone] Al dical NAL 353 [facility] 2021-10-08 2021-10-08 Outpatient R [facility] [id number] -20 Univers 09:00:00 09:00:[id number] [facility] 2021-10-08 2021-10-08 [facility] [id number] Univers 09:00:00 09:00:00 [facility] 2021-10-08 2021-10-08 Orders Doctor REYEZ 1.2.840.[id number] [place] [address] 00:00:00 00:00:00 Only Unassigned, RENAY 350.1.13.10 ity of [place] [facility] 4.2.7.2.686 Devang as [phone] [address] 2021-07-24 2021-07-24 [facility] [id number] [address] [place] 00:00:00 00:00:00 FELISHA [facility] 2021-07-17 2021-07-17 [place] Ass[employer]or Neva, Adc Lab Main [facility] 1.2.8 40.114 [id number] Univers 09:00:00 09:15:00 Visit Kim Carcamo 350.1.13.10 [place] [id number] Al dical NAL [address] [place] [address] 2021-07-17 2021-07-17 Outpatient R [facility] [id number] -[id number] Univers 09:00:00 09:00:[id number] [facility] 2021-07-17 2021-07-17 [facility] [id number] Univers 09:00:00 09:00:[address] [facility] 2021-07-17 2021-07-17 Orders Doctor AISSATOU 1.2.840.114 [id number] [facility] 00:00:00 00:00:00 Only Unassigned, RENAY 350.1.13.10 ity [facility] 4.2.7.2.686 Devang as [id number] [address] 2021-07-09 2021-07-09 Outpatient ILEANA MACIAS [facility] [id number] [place] 00:00:00 00:00:[address] 2021-07-07 2021-07-07 Outpatient ILEANA MACIAS [facility] [id number] [place] 00:00:00 00:00:[address] 2021-07-02 2021-07-02 Outpatient ILEANA MACIAS [facility] [id number] [id number] [place] 00:00:00 00:00:[address] 2021-07-02 2021-07-02 Outpatient ILEANA MACIAS [facility] 2100 [id number] [place] 00:00:00 00:00:[address] 2021-06-25 2021-06-25 Outpatient ILEANA MACIAS [facility] [id number] [id number] [place] 00:00:00 00:00:[address] 2021-05-28 2021-05-28 Outpatient ILEANA MACIAS [facility] 2100 [id number] [place] 00:00:00 00:00:[address] 2021-05-28 2021-05-28 Outpatient ILEANA MACIAS [facility] 2100 [id number] [place] 00:00:00 00:00:[address] 2021-04-28 2021-04-28 Outpatient R RADIOLOGY [facility] [id number] 7Q-20 Univers 14:00:00 14:00:00 [id number] [facility] 2021-04-21 2021-04-21 Outpatient R RADIOLOGY [facility] [id number] 7Q-20 Univers 16:00:00 16:00:00 [id number] [facility] 2021-04-21 2021-04-21 Outpatient R RADIOLOGY [facility] [id number] [facility] 00:00:00 00:00:00 [facility] 2021 2021 [facility] 1.2.840.114 [id number] Univers 16:09:32 23:59:00 Encounter Rad Gonzalez 350.1.13.10 ity of [place] 4.2.7.2.686 [facility] [id number] [address] 2021 2021 [facility] [id number] 7Q-20 Univers 16:15:00 16:15:[id number] [facility] 2021 2021 [facility] [id number] Univers 00:00:00 00:00:[address] [facility] 2021-02-11 2021-02-11 Ancillary Refinetti, 1.2.840.1 [id number] Univers 20:05:00 20:10:00 Procedure Harry Dover 58443.1.1 ity of [place] 3.412.2.7 [place] .3.492080 .8 [facility] 2021-02-11 2021-02-11 Ancillary Ruchitti, 1.2.840.1 [id number] Univers 20:00:00 20:05:00 Procedure Harry Dvoer 13801.1.1 ity of [place] 3.412.2.7 [place] .3.834351 .8 Tr crews [facility] [place] 2021-02-11 2021-02-11 Outpatient RICHAR CONLEY MDA MDA [id number] 13:02:34 15:01:40 HARRY crews 2021-02-11 2021-02-11 Office Refinetti, 1.2.840.1 [id number] Univers 13:00:00 15:01:40 Visit Harry Dover 05187.1.1 it y of [place] 3.412.2.7 [place] .3.908653 .8 Tr [facility] 2021-02-11 2021-02-11 Outpatient GEN BLEVINS [id number] 12:58:57 12:59:14 Frankie crews 2021-02-11 2021-02-11 NPR 1.2.840.1 [id number] Univers 12:30:00 12:59:14 61961.1.1 ity of 3.412.2.7 [place] .3.485334 MD Moore8 [facility] 2021-02-11 2021-02-11 Ancillary Frandy, 1.2.840.1 [id number] [facility] [id number] Univers 09:30:00 11:00:00 Procedure Jerardo 22436.1.1 it y of 3.412.2.7 [place] .3.878201 MD Moore8 [facility] 2021-02-11 2021-02-11 Ancillary Frandy, 1.2.840.1 [id number] [facility] 276535 [facility] 08:30:00 09:30:00 Procedure Jerardo 14643.1.1 it y of 3.412.2.7 [place] .3.371462 MD Mccarthy [facility] 2021-02-11 2021-02-11 Outpatient [facility] [id number] 08:59:40 08:59:40 JERARDO crews 2021-02-11 2021-02-[address] [facility] [id number] 08:29:21 08:29:21 HARRY crews 2021-02-11 2021-02-11 Outpatient [facility] MDA [id number] 08:29:19 08:29:19 AHRRY crews 2021-02-11 2021-02-11 Outpatient [facility] MDA [id number] 07:54:36 07:54:36 JERARDO crews 2021-02-11 2021-02-11 Travel 1.2.840.1 1.2.821.927 [id number] Univers 00:00:00 00:00:00 40147.1.1 350.1.13.41 ity of 3.412.2.7 2.[place].3.698 [place] .3.673996 084.8 MD Moore8 [facility] 2021-02-10 2021-02-10 Orders Frandy, 1.2.840.1 [id number] Univers 00:00:00 00:00:00 Only Jerardo 72901.1.1 ity of 3.412.2.7 [place] .3.604666 MD Moore8 [facility] 2021-02-10 2021-02-10 Orders Refinetti, 1.2.840.1 [id number] Univers 00:00:00 00:00:00 Only Harry Dover 79489.1.1 it y of [place] 3.412.2.7 [place] .3.995444 .8 [facility] 2021-02-09 2021-02-09 Orders Refinetti, 1.2.840.1 [id number] Univers 00:00:00 00:00:00 Only Harry Dover 86736.1.1 it y of [place] 3.412.2.7 [place] .3.747957 .8 [facility] 2021-01-16 2021-01-[address] [facility] 1.2.840.114 [id number] Univers 10:20:40 10:35:40 Visit Bell Melendez [facility] 350.1.13.10 ity of Surgical 4.2.7.2.686 Devang as Specialti [id number] Al dical 198 [facility] 2021-01-16 2021-01-16 Outpatient R AL [facility] [id number] 7Q-20 Univers 10:15:00 10:15:[id number] [facility] 2021-01-16 2021-01-16 Outpatient R AL [facility] [id number] Univers 10:15:00 10:15:00 BELL [facility] 2021-01-07 2021-01-07 Outpatient R AL [facility] [id number] 7Q-20 Univers 15:00:00 15:00:[id number] [facility] 2021-01-06 2021-01-06 [place] Assessor Neva, Terese Lab Main [facility] 1.2.8 40.114 [id number] Univers 08:58:33 09:13:33 Visit Rad Dickson [place] 350.1.13.10 ity of [place] [id number] Al dical nal 353 [facility] 2021-01-06 2021-01-06 Outpatient R [facility] [id number] -20 Univers 09:00:00 09:00:[id number] [facility] 2021-01-06 2021-01-06 Outpatient R YESSI [facility] [id number] Univers 09:00:00 09:00:[address] [facility] 2021-01-06 2021-01-06 Orders Doctor AISSATOU 1.2.840.114 [id number] Univers 00:00:00 00:00:00 Only Unassigned, RENAY 350.1.13.10 ity of [place] [facility] 4.2.7.2.686 Devang as [id number] [address] 2021-01-01 2021-01-01 [facility] 1.2.840.114 [id number] Univers 00:00:00 00:00:00 Bell Conde [facility] 350.1.13.10 it y of Surgical 4.2.7.2.686 [place] as Specialti [id number] Al dical es 198 [facility] 2020-12-25 2020-12-25 Outpatient [facility] [id number] 7Q-20 Univers 15:30:00 15:30:[id number] [facility] 2020-12-25 2020-12-25 Out[facility] [id number] Univers 15:30:00 15:30:[address] [facility] 2020-12-25 2020-12-25 Office [facility] 1.2.721.053 [id number] Univers 13:31:18 14:06:12 Visit Bell Mcintosh 350.1.13.10 it y of Surgical 4.2.7.2.686 [place] as Specialti [id number] Al dical es 198 [facility] 2020-12-17 2020-12-17 Orders Doctor AISSATOU 1.2.840.114 [id number] Univers 00:00:00 00:00:00 Only Unassigned, RENAY 350.1.13.10 ity of [place] [facility] 4.2.7.2.686 Devang as [id number] [address] 2020-11-05 2020-11-05 Orders Doctor AISSATOU 1.2.840.114 [id number] Univers 00:00:00 00:00:00 Only Unassigned, RENAY 350.1.13.10 ity of [place] [facility] 4.2.7.2.686 Devang as [id number] [address] 2020-10-03 2020-10-03 Orders Doctor AISSATOU 1.2.840.114 [id number] Univers 00:00:00 00:00:00 Only Unassigned, RENAY 350.1.13.10 ity of [place] [facility] 4.2.7.2.686 Devang as [id number] [address] 2020-09-25 2020-09-25 Orders Doctor AISSATOU 1.2.840.114 [id number] Univers 00:00:00 00:00:00 Only Unassigned, RENAY 350.1.13.10 ity of [place] [facility] 4.2.7.2.686 Devang as [id number] [address] 2020-09-16 2020-09-16 [facility] 1.2.840.114 [id number] Univers 14:23:38 23:59:00 Encounter Bell Conde [facility] 350.1.13.10 ity of Surgical 4.2.7.2.686 Devang as Specialti [phone] Me dical es 809 [facility] 2020-09-16 2020-09-16 [facility] 1.2.840.114 [id number] Univers 14:13:59 15:12:27 Visit James Eller [facility] 350.1.13.10 it y of Surgical 4.2.7.2.686 Dev[place] as Specialti [id number] Me dical es 198 [facility] 2020-09-16 2020-09-16 Out[facility] [id number] -[id number] Univers 14:45:00 14:45:00 JAMES [id number] [facility] 2020-09-16 2020-09-16 Outpatient Bet[facility] [id number] Univers 14:45:00 14:45:00 [facility] 2020-08-22 2020-08-22 [facility] 1.2.840.114 [id number] Univers 10:35:37 10:50:37 Visit [facility] 350.1.13.10 it y of Surgical 4.2.7.2.686 Devang as Specialti [phone] Me dical es 198 [facility] 2020-08-22 2020-08-22 Outpatient Bet[facility] [id number] -[id number] Univers 10:30:00 10:30:00 JAMES [id number] [facility] 2020-08-22 2020-08-22 Outpatient Betzy [facility] [id number] Univers 10:30:00 10:30:00 JAMES [facility] 2020-08-05 2020-08-05 [facility] 1.2.840.114 [id number] Univers 13:39:50 13:54:50 Visit [facility] 350.1.13.10 it y of Surgical 4.2.7.2.686 [place]ang as Specialti [id number] Me dical es 198 [facility] 2020-08-05 2020-08-05 Outpatient [facility] [id number] -[id number] Univers 13:30:00 13:30:00 JAMES [id number] [facility] 2020-08-05 2020-08-05 Outpatient Bet[facility] [id number] Univers 13:30:00 13:30:00 JAMES [facility] 2020-07-23 2020-07-23 [facility] 1.2.840.114 [id number] Univers 10:29:15 23:59:00 Encounter [facility] 350.1.13.10 ity of Surgical 4.2.7.2.686 Devang as Specialti [phone] Al dical es 809 [facility] 2020-07-23 2020-07-23 Office [facility] 1.2.840.114 [id number] Univers 09:37:23 09:52:23 Visit [facility] 350.1.13.10 it y of Surgical 4.2.7.2.686 Devang as Specialti [id number] Me dical es 198 [facility] 2020-07-23 2020-07-23 Outpatient [facility] [id number] -[id number] Univers 09:30:00 09:30:[id number] [facility] 2020-07-23 2020-07-23 Outpatient [facility] [id number] Univers 09:30:00 09:30:00 [facility] 2020-07-11 2020-07-11 [facility] 1.2.840.114 [id number] Univers 15:39:36 23:59:00 Encounter [facility] 350.1.13.10 ity of Surgical 4.2.7.2.686 Devang as Specialti [phone] Al dical es 809 [facility] 2020-07-11 2020-07-11 [facility] 1.2.840.114 [id number] Univers 15:39:15 23:59:00 Encounter [facility] 350.1.13.10 ity of Surgical 4.2.7.2.686 Devang as Specialti [id number] Me dical es 809 [facility] 2020-07-11 2020-07-11 [facility] 1.2.840.114 [id number] Univers 14:50:10 16:16:16 Visit [facility] 350.1.13.10 it y of Surgical 4.2.7.2.686 Devang as Specialti [id number] Al dical es 198 [facility] 2020-07-11 2020-07-11 Outpatient [facility] [id number] Univers 14:45:00 14:45:[id number] [facility] 2020-07-11 2020-07-11 Outpatient R [facility] [id number] Univers 14:45:00 14:45:[address] [facility] 2020-06-05 2020-06-05 [place] Assessor Neva, Adc Lab Main [facility] 1.2.8 40.114 [id number] Univers 08:25:11 08:40:11 Visit Yessi Allensiva Evette 350.1.13.10 ity [facility] 4.2.7.2.686 [facility] [id number] Al dical nal 353 [facility] 2020-06-05 2020-06-05 Outpatient R [facility] [id number] -[id number] Univers 08:30:00 08:30:[id number] [facility] 2020-06-05 2020-06-05 Outpatient R JOLENELOVEBERTRAND [facility] [id number] Univers 08:30:00 08:30:00 RAD [facility] 2020-05-20 2020-05-20 [facility] 1.2.840.114 [id number] Univers 13:51:50 23:59:00 Encounter Bell Gonzalez 350.1.13.10 ity [facility] 4.2.7.2.686 [facility] Frederica [id number] [facility] [address] 2020-05-20 2020-05-20 Office [facility] 1.2.208.477 [id number] Univers 14:41:44 15:20:24 Visit Bell Conde Arnaldo 350.1.13.10 it y of Surgical 4.2.7.2.686 Devang as Specialti [id number] Al dical es 198 [facility] 2020-05-20 2020-05-20 Outpatient [facility] [id number] 7Q-20 Univers 14:45:00 14:45:[id number] [facility] 2020-05-20 2020-05-20 Outpatient [facility] [id number] Univers 14:45:00 14:45:00 [facility] 2020-05-20 2020-05-20 Telephone [facility] to [facility] 1.2.840.114 [id number] Univers 00:00:00 00:00:00 Bell Conde Gild 350.1.13.10 it y of Surgical 4.2.7.2.686 Devang as Specialti [id number] Al dical es [address] [place] 2020-05-20 2020-05-20 Orders Doctor AISSATOU 1.2.840.114 [id number] Univers 00:00:00 00:00:00 Only Unassigned, RENAY 350.1.13.10 ity of [place] [facility] 4.2.7.2.686 Devang as [phone] [facility] [address] Results Test Description Test Time Test Comments Results Result Comments Source CBC WITH DIFF 2021-01-06 14:23:25 Test Item Value Reference Range Interpretation Comme nts WBC (test code = 6690-2) See_Comment [A utomated message] The system which ge nerated this result transmit yenni reference range: 4.30 - 1 1.10 10*3/?L. The reference r mikaela was not used to interpr et this result as normal/abnor mal. RBC (test code = 789-8) See_Comment [Au tomated message] The system which ge nerated this result transmit yenni reference range: 3.93 - 5 .25 10*6/?L. The reference r mikaela was not used to interpr et this result as normal/abnor mal. HGB (test code = 718-7) 13.3 g/dL 11.6-15.0 HCT (test code = 4544-3) 40.8 % 35.7-45.2 MCV (test code = 787-2) 88.7 fL 80.6-95.5 MCH (test code = 785-6) 28.9 pg 25.9-32.8 MCHC (test code = 786-4) 32.6 g/dL 31.6-35.1 RDW-SD (test code = 12889-7) 42.5 fL 39.0-49.9 RDW-CV (test code = 788-0) 13.1 % 12.0-15.5 PLT (test code = 777-3) See_Comment [Au tomated message] The system which ge nerated this result transmit yenni reference range: 166 - 35 8 10*3/?L. The reference range was not used to interpret th is result as normal/abnormal . MPV (test code = 16776-3) 9.0 fL 9.5-12.9 L NRBC/100 WBC (test code = See_Comment [ Automated message] The [id number]) system which [employer] nerated this result transmit yenni reference range: 0.0 - 10 .0 /100 WBCs. The reference r mikaela was not used to interpr et this result as normal/abnor mal. NRBC x10^3 (test code = <0.01 See_Comment [Au tomated message] The 6057376326) system which [employer] nerated this result transmit yenni reference range: 10*3/?L. The reference range was not u sed to interpret this result as normal/abnormal . GRAN MAT (NEUT) % (test code 45.9 % = 770-8) IMM GRAN % (test code = 0.20 % 9195060277) LYMPH % (test code = 736-9) 42.9 % MONO % (test code = 5905-5) 6.1 % EOS % (test code = 713-8) 3.6 % BASO % (test code = 706-2) 1.3 % GRAN MAT x10^3(ANC) (test 2.93 10*3/uL 1.88-7.09 code = 0169549132) IMM GRAN x10^3 (test code = <0.03 0.00-0.06 3434698146) LYMPH x10^3 (test code = 2.73 10*3/uL 1.32-3.29 731-0) MONO x10^3 (test code = 0.39 10*3/uL 0.33-0.92 742-7) EOS x10^3 (test code = 0.23 10*3/uL 0.03-0.39 711-2) BASO x10^3 (test code = 0.08 10*3/uL 0.01-0.07 H 704-7) Lab Interpretation (test Abnormal code = 42545-9) [facility]3 VW [id number] 20:39:49 Avulsion fracture on the tip of the fibula show signs of callus formation [facility] KNEE <3 VW [id number] 16:47:22She has periosteal reaction in the proximal fibula of her left leg there is likely a stress fracturehere. ?[facility] VW RIGHT 2020-07-11 22:09:18She has an avulsion fracture nondisplaced at the tip of the fibula her ankle mortise is nicely balanced no medial ankle fractures.[facility] KNEE <3 VW [id number] 22:07:05No sign of fracture or dislocation the medial joint space is 60% narrowed and there are on tunnels from previous anterior cruciate ligament reconstructionUnMission [facility] Medical CenterCOMP. METABOLIC PANEL ([id number])2020-06-05 15:39:00 Test Item Value Reference Range Interpretation Comments NA (test code = 142 mmol/L 135-145 7816736547) K (test code = 4.4 mmol/L 3.5-5 6773673050) CL (test code = 106 mmol/L 98-108 2956598835) CO2 TOTAL (test code = 29 mmol/L 23-31 8470967303) AGAP (test code = 2-16 2797529732) BUN (test code = 20 mg/dL 7-23 4593380104) GLUCOSE (test code = 93 mg/dL 70-110 2780236873) CREATININE (test code 0.68 mg/dL 0.5-1.04 = 1055686185) TOTAL BILI (test code 0.6 mg/dL 0.1-1.1 = 0781106980) CALCIUM (test code = 9.7 mg/dL 8.6-10.6 9217868995) T PROTEIN (test code = 6.9 g/dL 6.3-8.2 2914862000) ALBUMIN (test code = 4.1 g/dL 3.5-5 3276768331) ALK PHOS (test code = 90 U/L 34-122 1194275529) ALTv (test code = 28 U/L 5-35 1742-6) AST(SGOT) (test code = 24 U/L 13-40 6252725373) eGFR Calculation mL/min/1.73m2 (Non-) (test code = 9544805791) eGFR Calculation mL/min/1.73m2 () (test code = 3031638809) RIKI (test code = RIKI) Association of Glomerular Filtration Rate (GFR) and Staging of Kidney Disease* + -+ + ---+| GFR (mL/min/1.73 m2) ?| With Kidney Damage ?| ?Without Kidney Damage+ -------+ ------+ ---------+| ?>90 ?| ?Stage one ?| ? Normal ?+ --+ -+ ----+| ?60-89 ?| ?Stage two ?| ? Decreased GFR ? + -+ + ---+| ?30-59 ?| ?Stage three ?| ? Stage three ? + -+ + ---+| ?15-29 ?| ?Stage four ? | ? Stage four ?+ --+ -+ ----+| ?<15 (or dialysis) ? ?| ?Stage five ? | ? Stage five ?+ --+ -+ ----+ *Each stage assumes the associated GFR level has been in effect for at least three months. ?Stages 1 to 5, with or without kidney disease, indicate chronic kidney disease. Notes: Determination of stages one and two (with eGFR >59mL/min/1.73 m2) requires estimation of kidney damage for at least three months as defined by structural or functional abnormalities of the kidney, manifested by either:Pathological abnormalities or Markers of kidney damage (including abnormalities in the composition of the blood or urine or abnormalities in imaging tests). [facility][id number])(TOTAL CHOLESTEROL, TRIGLYCERIDES, HDL)2020-06-05 15:39:00 Test Item Value Reference Range Interpretation Comments CHOL (test code = 231 mg/dL 120-200 H [id number]) HDL (test code = 58 mg/dL >50 [id number]) HDLC RATIO (test code = See_Comment [Au tomated message] [id number]) The system [employer]. generated this result transmit yenni reference range : <=4.5. The refe rence range was not u sed to interpret th is result as normal/abnormal . TRIG (test code = 132 mg/dL 30-170 [id number]) LDL CHOL (test code = 147 mg/dL See_Comment [Auto mated message] 61999-2) The system [employer]. generated this result transmit yenni reference range : <=160. The refe rence range was not u sed to interpret th is result as normal/abnormal . VLDL (test code = 26 mg/dL 5-60 [id number]) Lab Interpretation (test Abnormal code = 74301-0) [facility] WITH [id number] 14:59:00 Test Item Value Reference Range Interpretation Comments WBC (test code = See_Comment [Automated 6690-2) message] The sy stem which generated this result transmitted reference range : 4.30 - 11.10 10*3/?L. The reference range was not used to interpret this result as normal/abnormal . RBC (test code = See_Comment [Automated 789-8) message] The sy stem which generated this result transmitted reference range : 3.93 - 5.25 10*6/?L. The reference range was not used to interpret this result as normal/abnormal . HGB (test code = 13.7 g/dL 11.6-15 718-7) HCT (test code = 41.7 % 35.7-45.2 4544-3) MCV (test code = 88.3 fL 80.6-95.5 787-2) MCH (test code = 29.0 pg 25.9-32.8 785-6) MCHC (test code = 32.9 g/dL 31.6-35.1 786-4) RDW-SD (test code = 41.7 fL 39-49.9 82436-8) RDW-CV (test code = 12.8 % 12-15.5 788-0) PLT (test code = See_Comment [Automated 777-3) message] The sy stem which generated this result transmitted reference range : 166 - 358 10*3/ ?L. The reference r mikaela was not used to interpret this result as normal/abnormal . MPV (test code = 8.9 fL 9.5-12.9 L 27079-9) NRBC/100 WBC (test See_Comment [Automat ed code = [id number]) message] The system which generated this result transmitted reference range : 0.0 - 10.0 /100 WBCs. The refer ence range was not u sed to interpret th is result as normal/abnormal . NRBC x10^3 (test code <0.01 See_Comment [Auto mated = [id number]) message] The s ystem which generated this result transmitted reference range : 10*3/?L. The reference range was not used to interpret this result as normal/abnormal . GRAN MAT (NEUT) % 75.9 % (test code = 770-8) IMM GRAN % (test code 0.30 % = [id number]) LYMPH % (test code = 17.5 % 736-9) MONO % (test code = 4.7 % 5905-5) EOS % (test code = 1.1 % 713-8) BASO % (test code = 0.5 % 706-2) GRAN MAT x10^3(ANC) 8.00 10*3/uL 1.88-7.09 H (test code = 9245429992) IMM GRAN x10^3 (test 0.03 10*3/uL 0-0.06 code = 3857584897) LYMPH x10^3 (test code 1.85 10*3/uL 1.32-3.29 = 731-0) MONO x10^3 (test code 0.50 10*3/uL 0.33-0.92 = 742-7) EOS x10^3 (test code = 0.12 10*3/uL 0.03-0.39 711-2) BASO x10^3 (test code 0.05 10*3/uL 0.01-0.07 = 704-7) Lab Interpretation Abnormal (test code = 09069-4) [facility] 3 VW [id number] 20:03:37 1. ?Bilateral osteoarthritis. RL: 1105 HISTORY: ?Bilateral knee pain Bilateral knee standing a/p and bilaterallateral COMPARISON: ?None FINDINGS: 3 views bilateral knees. 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 Findings most pronounced in themedial compartment right greater than left. There is joint space narrowingand osteophyte formation in all 3 compartments. Small joint effusion seen. 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 Findings most pronounced in themedial compartment right greater than left. There is joint space narrowingand osteophyte formation in all 3 compartments. Small joint effusion seen.IMPRESSION1. Bilateral osteoarthritis.RL: [facility]5 [facility]"
[2022-01-02 10:56] LABS: Absolute Lymphocytes (CBC) 1.7 K/uL (0.7-4.9); Hematocrit 41.4 % (36.0-45.0); Lymphocytes % 25.5 % (15.3-44.8); RBC Red Blood Cell Count 4.87 M/uL (3.86-4.86)
[2022-01-02 10:59] LABS: Protime INR 1.03
[2022-01-02] MEDS ORDERED: MECLIZINE HCL 12.5 MG TAB ONE (10:59)
[2022-01-02] MEDS ORDERED: ONDANSETRON 4 MG/2 ML VIAL ONE (11:00)
[2022-01-02] MEDS ORDERED: FOLIC ACID 5 MG/ML VIAL ONE (11:01)
[2022-01-02] MEDS ORDERED: NA CHLORIDE 0.9% 1,000 ML ONE (11:01)
[2022-01-02 11:19] LABS: ALT/SGPT 35 U/L (12-78); AST/SGOT 19 U/L (15-37); Albumin 3.4 g/dL (3.4-5.0); Alkaline Phosphatase 118 U/L (45-117); BUN Blood Urea Nitrogen 15 mg/dL (7-18); Bicarbonate 26 mmol/L (21-32); Bilirubin Direct < 0.1 mg/dL (0-0.2); Bilirubin Total 0.3 mg/dL (0.2-1.0); Glomerular Filtration Rate 97 ml/min (=/>90); Glucose Level 98 mg/dL (74-106); Magnesium 2.1 mg/dL (1.8-2.4); NT PRO-BNP 66 pg/mL (<125); Potassium 3.9 mmol/L (3.5-5.1); Protein, Total 7.3 g/dL (6.4-8.2); Sodium Level 140 mmol/L (136-145); Troponin High Sensitivity 4.4 pg/mL (<58.9)
--- NOTE | 2022-01-02 11:32 | RAD REPORT ---
EXAM DESCRIPTION: Laurita Single View01/02/2022 10:59 am CLINICAL HISTORY: Cough COMPARISON: 2014 FINDINGS: The lungs appear clear of acute infiltrate. The heart is normal size IMPRESSION: No acute abnormalities displayed
--- NOTE | 2022-01-02 11:34 | RAD REPORT ---
EXAM DESCRIPTION: CT - Head Brain Wo Cont - 01/02/2022 11:22 am CLINICAL HISTORY: Numbness COMPARISON: 2014 TECHNIQUE: Computed axial tomography of the head was obtained. IV contrast was not requested. All CT scans are performed using dose optimization technique as appropriate and may include automated exposure control or mA/KV adjustment according to patient size. FINDINGS: An intracranial bleed is not seen . The ventricles are normal in caliber. No significant hypodense areas within the brain visualized No extra-axial fluid collection is noted. Fluid within the sinuses/ mastoids is not seen. IMPRESSION: No acute intracranial abnormality is seen. If patient's symptoms persist MRI of the bra in would be recommended.
[2022-01-02] MEDS ORDERED: ASPIRIN 81 MG CHEWABLE TABLET ONE (12:30)
--- NOTE | 2022-01-02 13:00 | RAD REPORT ---
EXAM DESCRIPTION: - CP - 01/02/2022 12:48 pm CLINICAL HISTORY: DIZZINESS COMPARISON: No comparisons TECHNIQUE: Real-time sonographic evaluation of bilateral carotid and vertebral systems was performed . Latif scale and Doppler interrogation were performed with waveform tracing bilaterally. FINDINGS: Normal high resistance waveforms are noted in both external carotid arteries. The common c arotid arteries and internal carotid arteries show normal low resistance waveforms. Minimal calcified plaquing seen in each carotid bulb. Peak systolic and end diastolic velocity values and the ICA/CCA ratios are in the non-hemodynamically significant range. Antegrade flow seen in both vertebral arteries. Velocity values and ratios were recorded and are retained in the patient's imaging records. IMPRESSION: Mild bilateral carotid bulb atherosclerotic change. No evidence of a hemodynamically significant stenosis.
--- NOTE | 2022-01-02 13:33 | ER ---
Nurse's Notes [facility] Name: Ladan Greer Age: 61 yrs Sex: Female : 1960 Arrival Date: 01/02/2022 Time: 09:55 Bed 19 Private MD: Diagnosis: Vomiting;Paresthesia of skin;Dizziness and giddiness Presentation: 01/02 09:58 Chief complaint: Patient states: surgery was 3 weeks ago. i started feeling bad about 8 tw2 days ago. i felt dizzy. i feel like the room is spinning. +n/v. this morning i feel like my finger tips on the LEFT and i feel like the left side of my face is cold. started about 530 this morning. still feels the same. Coronavirus screen: At this time, the client does not indicate any symptoms associated with coronavirus-19. Ebola Screen: Patient denies travel to an Ebola-affected area in the 21 days before illness onset. Initial Sepsis Screen: Does the patient meet any 2 criteria? No. Patient's initial sepsis screen is negative. Does the patient have a suspected source of infection? No. Patient's initial sepsis screen is negative. Risk Assessment: Do you want to hurt yourself or someone else? Patient reports no desire to harm self or others. Onset of symptoms was January 02, 2022. 09:58 Method Of Arrival: Wheelchair tw2 09:58 Acuity: VENITA 3 tw2 Triage Assessment: 10:01 General: Appears in no apparent distress. slender, well groomed, Behavior is calm, tw2 cooperative, appropriate for age. Pain: Denies pain. Neuro: Reports dizziness, numbness since this morning 0530 on left side of my face. Historical: - Allergies: 10:01 Hydrocodone-Acetaminophen; tw2 - Home Meds: 10:01 None [Active]; tw2 - PMHx: 10:01 Hypothyroidism; tw2 - PSHx: 10:01 Cholecystectomy; hysterectomy; tw2 - Immunization history:: Adult Immunizations. - Social history:: Smoking status: . - Family history:: not pertinent. Screenin:08 Abuse screen: Denies threats or abuse. Nutritional screening: No deficits noted. tw2 Tuberculosis screening: No symptoms or risk factors identified. Fall Risk None identified. 10:15 VAN Screening: Arm Drift: Patient shows no arm weakness. Patient is VAN negative. jd3 Assessment: 10:12 General: Appears in no apparent distress. comfortable, Behavior is calm, cooperative, jd3 appropriate for age. Pain: Denies pain. Neuro: Renae Agitation-Sedation Scale (RASS): 0 - Alert and Calm Level of Consciousness is awake, alert, obeys commands, Oriented to person, place, time, situation, Extruding Press Adjuster are equal bilaterally Moves all extremities. Full function Gait is steady, Speech is normal, Facial symmetry appears normal, Pupils are PERRLA, Intact Reports dizziness, since x 1 week numbness in left side of head since 0500 this AM. Cardiovascular: Denies chest pain, Heart tones S1 S2 present Capillary refill < 3 seconds Patient's skin is warm and dry. Respiratory: Airway is patent Respiratory effort is even, unlabored, Respiratory pattern is regular, symmetrical, Breath sounds are clear bilaterally. Denies cough, shortness of breath. GI: Abdomen is non-distended, Bowel sounds present X 4 quads. Abd is soft and non tender X 4 quads. Reports nausea. : No signs and/or symptoms were reported regarding the genitourinary system. EENT: No signs and/or symptoms were reported regarding the EENT system. Derm: Skin is intact, Skin is dry, Skin is normal, Skin temperature is warm. Musculoskeletal: Circulation, motion, and sensation intact. Range of motion: intact in all extremities. 11:03 Reassessment: Patient appears in no apparent distress at this time. No changes from jd3 previously documented assessment. Patient and/or family updated on plan of care and expected duration. Pain level reassessed. Patient is alert, oriented x 3, equal unlabored respirations, skin warm/dry/pink. 13:46 Reassessment: No changes from previously documented assessment. Patient and/or family jd3 updated on plan of care and expected duration. Pain level reassessed. Patient is alert, oriented x 3, equal unlabored respirations, skin warm/dry/pink. discharge pending MRI results per ER provider. 14:47 Reassessment: Patient appears in no apparent distress at this time. Patient and/or jd3 family updated on plan of care and expected duration. Pain level reassessed. Patient is alert, oriented x 3, equal unlabored respirations, skin warm/dry/pink. Vital Signs: 09:58 BP 174 / 71; Pulse 63; Resp 17; Temp 96.8(TE); Pulse Ox 100% on R/A; Weight 67.13 kg tw2 (R); Height 5 ft. 1 in. (154.94 cm); 11:03 BP 141 / 77; Pulse 59; Resp 16 S; Pulse Ox 99% on R/A; jd3 12:54 BP 150 / 83; Pulse 60; Resp 16 S; Pulse Ox 98% on R/A; jd3 13:47 BP 164 / 79; Pulse 55; Resp 16 S; Pulse Ox 100% on R/A; jd3 14:48 BP 160 / 88; Pulse 58; Resp 16 S; Pulse Ox 100% on R/A; jd3 09:58 Body Mass Index 27.96 (67.13 kg, 154.94 cm) tw2 NIH Stroke Scale Scores: 10:15 NIHSS Score: 0 jd3 10:40 NIHSS Score: 1 [facility] ED Course: 09:55 Patient arrived in ED. jj6 10:00 Juan A Martínez MD is Attending Physician. kenny 10:01 Triage completed. tw2 10:02 Arm band placed on. tw2 10:03 Irving Soria, RN is Primary Nurse. jd3 10:08 Placed in gown. Bed in low position. Call light in reach. Adult w/ patient. Pulse ox tw2 on. NIBP on. 10:08 Warm blanket given. tw2 10:55 Inserted saline lock: 22 gauge in right wrist, using aseptic technique. Blood collected.jd3 11:00 XRAY Chest (1 view) In Process Unspecified. EDMS 11:01 EKG done, by ED staff, reviewed by Juan A Martínez MD. dh3 11:24 CT Head Brain wo Cont In Process Unspecified. EDMS 12:50 US Carotid Artery Bilateral In Process Unspecified. EDMS 13:15 Brain Wo Cont In Process Unspecified. EDMS 13:32 Samuel Wray MD is Referral Physician. kenny 14:46 No provider procedures requiring assistance completed. IV discontinued, intact, jd3 bleeding controlled, No redness/swelling at site. Pressure dressing applied. Administered Medications: 11:02 Drug: NS 0.9% 1000 ml Route: IV; Rate: 1 bolus; Site: right wrist; jd3 12:00 Follow up: Response: No adverse reaction; IV Status: Completed infusion jd3 11:02 Drug: foLIC Acid 1 mg Route: IVPB; Site: right wrist; jd3 12:00 Follow up: Response: No adverse reaction; IV Status: Completed infusion jd3 11:02 Drug: Meclizine 50 mg Route: PO; jd3 12:00 Follow up: Response: No adverse reaction jd3 11:02 Drug: Zofran (Ondansetron) 4 mg Route: IVP; Site: right wrist; jd3 12:00 Follow up: Response: No adverse reaction jd3 12:39 Drug: Aspirin Chewable Tablet 162 mg Route: PO; jd3 13:30 Follow up: Response: No adverse reaction jd3 Medication: 10:08 VIS not applicable for this client. tw2 Outcome: 13:32 Discharge ordered by . kenny 14:46 Discharged to home ambulatory, with family. jd3 14:46 Condition: stable 14:46 Discharge instructions given to patient, Instructed on discharge instructions, follow up and referral plans. medication usage, Demonstrated understanding of instructions, follow-up care, medications, Prescriptions given X 3. 14:49 Patient left the ED. jd3 NIH Stroke Scale - NIH Stroke Score Date: 01/02/2022 Time: 10:15 Total Score = 0 1a. Level of Consciousness (LOC) - 0(Alert) 1b. Level of Consciousness (LOC) (Month \T\ Age) - 0(Both) 1c. LOC Commands (Open \T\ Closes Eyes/Tailer Out) - 0(Both) 2. Best Gaze (Lateral Gaze Paresis) - 0(Normal) 3. Visual Field Loss - 0(No visual loss) 4. Facial Palsy - 0(Normal) 5a. Left Arm: Motor (10-second hold) - 0(No drift) 5b. Right Arm: Motor (10-second hold) - 0(No drift) 6a. Left Leg: Motor (5-second hold - always test supine) - 0(No drift) 6b. Right Leg: Motor (5-second hold - always test supine) - 0(No drift) 7. Limb Ataxia (finger/nose \T\ heel/oseguera - test with eyes open) - 0(Absent) 8. Sensory Loss (pinprick arms/legs/face) - 0(Normal) 9. Best Language: Aphasia (description/naming/reading) - 0(No aphasia) 10. Dysarthria (speech clarity - read or repeat words) - 0(Normal) 11. Extinction and Inattention (visual/tactile/auditory/spatial/personal) - 0(No abnormality) Initials: graciebobby NIH Stroke Scale - NIH Stroke Score Date: 01/02/2022 Time: 10:40 Total Score = 1 1a. Level of Consciousness (LOC) - 0(Alert) 1b. Level of Consciousness (LOC) (Month \T\ Age) - 0(Both) 1c. LOC Commands (Open \T\ Closes Eyes/Tailer Out) - 0(Both) 2. Best Gaze (Lateral Gaze Paresis) - 0(Normal) 3. Visual Field Loss - 0(No visual loss) 4. Facial Palsy - 0(Normal) 5a. Left Arm: Motor (10-second hold) - 0(No drift) 5b. Right Arm: Motor (10-second hold) - 0(No drift) 6a. Left Leg: Motor (5-second hold - always test supine) - 0(No drift) 6b. Right Leg: Motor (5-second hold - always test supine) - 0(No drift) 7. Limb Ataxia (finger/nose \T\ heel/oseguera - test with eyes open) - 0(Absent) 8. Sensory Loss (pinprick arms/legs/face) - 1(Mild to moderate loss) 9. Best Language: Aphasia (description/naming/reading) - 0(No aphasia) 10. Dysarthria (speech clarity - read or repeat words) - 0(Normal) 11. Extinction and Inattention (visual/tactile/auditory/spatial/personal) - 0(No abnormality) Initials: kenny Signatures: Dispatcher [employer] Juan A Randall MD MD cha [facility], Tara, RN RN tw2 Sandra Patel dh3 Irvign Soria RN RN jd3 Nemo Hazel jj6
--- NOTE | 2022-01-02 13:33 | EDPHYS ---
Physician Documentation [facility] Name: Ladan Greer Age: 61 yrs Sex: Female : 1960 Arrival Date: 01/02/2022 Time: 09:55 Bed 19 Private MD: [facility] Physician Juan A Martínez HPI: 01/02 10:40 This 61 yrs old Female presents to ER via Wheelchair with complaints of Post kenny Surgical Pain, General Weakness, Vertigo, Left side facial numbness. 10:40 The patient presents to the emergency department with nausea, vomiting, that is kenny intermittent. Onset: The symptoms/episode began/occurred at 05:30. Possible causes: unknown. The symptoms are aggravated by movement, The symptoms are alleviated by nothing. The patient's problem is reported as paresthesias, in left side of face. Duration: The episode is continuous. The patient presents with dizziness. Onset: The symptoms/episode began/occurred yesterday. Historical: - Allergies: 10:01 Hydrocodone-Acetaminophen; tw2 - Home Meds: 10:01 None [Active]; tw2 - PMHx: 10:01 Hypothyroidism; tw2 - PSHx: 10:01 Cholecystectomy; hysterectomy; tw2 - Immunization history:: Adult Immunizations. - Social history:: Smoking status: . - Family history:: not pertinent. ROS: 10:40 Constitutional: Negative for fever, chills, and weight loss, Eyes: Negative for injury, kenny pain, redness, and discharge, ENT: Negative for injury, pain, and discharge, Neck: Negative for injury, pain, and swelling, Cardiovascular: Negative for chest pain, palpitations, and edema, Respiratory: Negative for shortness of breath, cough, wheezing, and pleuritic chest pain, Back: Negative for injury and pain, : Negative for injury, bleeding, discharge, and swelling, MS/Extremity: Negative for injury and deformity, Skin: Negative for injury, rash, and discoloration, Psych: Negative for depression, anxiety, suicide ideation, homicidal ideation, and hallucinations, Allergy/Immunology: Negative for hives, rash, and allergies, Endocrine: Negative for neck swelling, polydipsia, polyuria, polyphagia, and marked weight changes, Hematologic/Lymphatic: Negative for swollen nodes, abnormal bleeding, and unusual bruising. 10:40 Respiratory: Positive for 10:40 Abdomen/GI: Positive for nausea and vomiting. 10:40 Neuro: Positive for numbness, of the left side of head. Exam: 10:40 Constitutional: This is a well developed, well nourished patient who is awake, alert, kenny and in no acute distress. Head/Face: Normocephalic, atraumatic. Eyes: Pupils equal round and reactive to light, extra-ocular motions intact. Lids and lashes normal. Conjunctiva and sclera are non-icteric and not injected. Cornea within normal limits. Periorbital areas with no swelling, redness, or edema. ENT: Nares patent. No nasal discharge, no septal abnormalities noted. Tympanic membranes are normal and external auditory canals are clear. Oropharynx with no redness, swelling, or masses, exudates, or evidence of obstruction, uvula midline. Mucous membranes moist. Neck: Trachea midline, no thyromegaly or masses palpated, and no cervical lymphadenopathy. Supple, full range of motion without nuchal rigidity, or vertebral point tenderness. No Meningismus. Chest/axilla: Normal chest wall appearance and motion. Nontender with no deformity. No lesions are appreciated. Cardiovascular: Regular rate and rhythm with a normal S1 and S2. No gallops, murmurs, or rubs. Normal PMI, no JVD. No pulse deficits. Respiratory: Lungs have equal breath sounds bilaterally, clear to auscultation and percussion. No rales, rhonchi or wheezes noted. No increased work of breathing, no retractions or nasal flaring. Abdomen/GI: Soft, non-tender, with normal bowel sounds. No distension or tympany. No guarding or rebound. No evidence of tenderness throughout. Back: No spinal tenderness. No costovertebral tenderness. Full range of motion. Skin: Warm, dry with normal turgor. Normal color with no rashes, no lesions, and no evidence of cellulitis. MS/ Extremity: Pulses equal, no cyanosis. Neurovascular intact. Full, normal range of motion. Neuro: Awake and alert, GCS 15, oriented to person, place, time, and situation. Cranial nerves II-XII grossly intact. Motor strength 5/5 in all extremities. Sensory grossly intact. Cerebellar exam normal. Normal gait. Psych: Awake, alert, with orientation to person, place and time. Behavior, mood, and affect are within normal limits. 10:40 Neuro: Orientation: is normal, appropriate for stated age, no acute changes, Mentation: is normal, appropriate for stated age, no acute changes, Memory: is normal, appropriate for stated age, no acute changes, Cranial nerves: grossly normal, Motor: moves all fours, Sensation: pin prick is decreased in the left side of head, Gait: is steady, appropriate for age, Deep tendon reflexes are 2+ (normal) in the bilateral brachioradialis, bicep, tricep and patellar and Achilles tendons, Babinski testing is normal, seizure activity, is not displayed by the patient. 10:48 CT study not indicated or reported. Reason for not performing CT: na kenny 11:00 ECG was reviewed by the Attending Physician. [facility] Vital Signs: 09:58 BP 174 / 71; Pulse 63; Resp 17; Temp 96.8(TE); Pulse Ox 100% on R/A; Weight 67.13 kg tw2 (R); Height 5 ft. 1 in. (154.94 cm); 11:03 BP 141 / 77; Pulse 59; Resp 16 S; Pulse Ox 99% on R/A; jd3 12:54 BP 150 / 83; Pulse 60; Resp 16 S; Pulse Ox 98% on R/A; jd3 13:47 BP 164 / 79; Pulse 55; Resp 16 S; Pulse Ox 100% on R/A; jd3 14:48 BP 160 / 88; Pulse 58; Resp 16 S; Pulse Ox 100% on R/A; jd3 09:58 Body Mass Index 27.96 (67.13 kg, 154.94 cm) tw2 NIH Stroke Scale Scores: 10:15 NIHSS Score: 0 jd3 10:40 NIHSS Score: 1 kenny MDM: 10:00 Patient medically screened. kenny 10:47 Differential diagnosis: Nonspecific abd pain, gastritis, viral gastroenteritis, kenny gastroenteritis, CVA, TIA. Differential diagnosis: cardiac arrhythmia, CVA, generalized weakness, idiopathic dizziness, TIA. Data reviewed: vital signs, nurses notes, lab test result(s), EKG, radiologic studies, MRI, plain films. Data interpreted: environmental monitoring technician: rate is 63 beats/min, rhythm is regular, Pulse oximetry: on room air is 63 %. Test interpretation: by ED physician or midlevel provider: ECG, plain radiologic studies. Counseling: I had a detailed discussion with the patient and/or guardian regarding: the historical points, exam findings, and any diagnostic results supporting the discharge/admit diagnosis, lab results, radiology results, the need for outpatient follow up, for definitive care, a family practitioner, a neurologist. 01/02 10:37 Order name: Basic Metabolic Panel; Complete Time: 11:57 01/02 10:37 Order name: CBC with Diff; Complete Time: 57 01/02 10:37 Order name: LFT's; Complete Time: 01/02 10:37 Order name: Magnesium; Complete Time: :57 01/02 10:37 Order name: NT PRO-BNP; Complete Time: 01/02 10:37 Order name: PT-INR; Complete Time: 57 01/02 10:37 Order name: Troponin HS; Complete Time: :57 kenny 01/02 10:37 Order name: XRAY Chest (1 view); Complete Time: :57 01/02 10:37 Order name: US Carotid Artery Bilateral; Complete Time: 13:22 01/02 10:55 Order name: CT Head Brain wo Cont; Complete Time: :01/02 10:56 Order name: CRP; Complete Time: :57 01/02 10:56 Order name: Sed Rate; Complete Time: :01/02 10:37 Order name: EKG; Complete Time: 10:38 01/02 10:37 Order name: Cardiac monitoring; Complete Time: 11:03 01/02 10:37 Order name: EKG - Nurse/Tech; Complete Time: 11:01/02 10:37 Order name: IV Saline Lock; Complete Time: 10:51 01/02 10:37 Order name: Labs collected and sent; Complete Time: 10:51 01/02 10:37 Order name: O2 Per Protocol; Complete Time: :01/02 10:37 Order name: O2 Sat Monitoring; Complete Time: :01/02 13:15 Order name: Brain Wo Cont EDMS EC:00 Rate is 59 beats/min. Rhythm is regular. QRS [place] is Normal. DE interval is normal. QRS kenny interval is normal. QT interval is normal. No Q waves. T waves are Normal. No ST changes noted. Clinical impression: Sinus bradycardia and No evidence of ischemia. Interpreted by me. Reviewed by me. Administered Medications: 11:02 Drug: NS 0.9% 1000 ml Route: IV; Rate: 1 bolus; Site: right wrist; jd3 12:00 Follow up: Response: No adverse reaction; IV Status: Completed infusion jd3 11:02 Drug: foLIC Acid 1 mg Route: IVPB; Site: right wrist; jd3 12:00 Follow up: Response: No adverse reaction; IV Status: Completed infusion jd3 11:02 Drug: Meclizine 50 mg Route: PO; jd3 12:00 Follow up: Response: No adverse reaction jd3 11:02 Drug: Zofran (Ondansetron) 4 mg Route: IVP; Site: right wrist; jd3 12:00 Follow up: Response: No adverse reaction jd3 12:39 Drug: Aspirin Chewable Tablet 162 mg Route: PO; jd3 13:30 Follow up: Response: No adverse reaction jd3 Disposition Summary: 01/02/22 13:32 Discharge Ordered Location: Home kenny Problem: new kenny Symptoms: have improved kenny Condition: Stable kenny Diagnosis - Vomiting kenny - Paresthesia of skin kenny - Dizziness and giddiness kenny Followup: kenny - With: Private Physician - When: 2 - 3 days - Reason: Recheck today's complaints, Continuance of care, Re-evaluation by your physician Followup: kenny - With: - When: 2 - 3 days - Reason: Recheck today's complaints, Continuance of care, Re-evaluation by your physician Discharge Instructions: - Discharge Summary Sheet kenny - Benign Positional Vertigo kenny - Paresthesia kenny - Aspirin and Your Heart kenny - Paresthesia, [id number] kenny - Dizziness kenny - Vomiting, Adult kenny Forms: - Medication Reconciliation Form kenny - Thank You Letter kenny - Antibiotic Education kenny - Prescription Opioid Use kenny Prescriptions: - Folic Acid 1 mg Oral Tablet - take 1 tablet by ORAL route once daily; 30 tablet; Refills: 0, Product kenny Selection Permitted - Meclizine 25 mg Oral Tablet - take 1 tablet by ORAL route every 8 hours As needed; 30 tablet; Refills: 0, kenny Product Selection Permitted - Zofran 4 mg Oral Tablet - take 1 tablet by ORAL route every 12 hours As needed; 20 tablet; Refills: 0, kenny Product Selection Permitted NIH Stroke Scale - NIH Stroke Score Date: 01/02/2022 Time: 10:15 Total Score = 0 1a. Level of Consciousness (LOC) - 0(Alert) 1b. Level of Consciousness (LOC) (Month \T\ Age) - 0(Both) 1c. LOC Commands (Open \T\ Closes Eyes/Aligner Typewriter) - 0(Both) 2. Best Gaze (Lateral Gaze Paresis) - 0(Normal) 3. Visual Field Loss - 0(No visual loss) 4. Facial Palsy - 0(Normal) 5a. Left Arm: Motor (10-second hold) - 0(No drift) 5b. Right Arm: Motor (10-second hold) - 0(No drift) 6a. Left Leg: Motor (5-second hold - always test supine) - 0(No drift) 6b. Right Leg: Motor (5-second hold - always test supine) - 0(No drift) 7. Limb Ataxia (finger/nose \T\ heel/oseguera - test with eyes open) - 0(Absent) 8. Sensory Loss (pinprick arms/legs/face) - 0(Normal) 9. Best Language: Aphasia (description/naming/reading) - 0(No aphasia) 10. Dysarthria (speech clarity - read or repeat words) - 0(Normal) 11. Extinction and Inattention (visual/tactile/auditory/spatial/personal) - 0(No abnormality) Initials: jd3 NIH Stroke Scale - NIH Stroke Score Date: 01/02/2022 Time: 10:40 Total Score = 1 1a. Level of Consciousness (LOC) - 0(Alert) 1b. Level of Consciousness (LOC) (Month \T\ Age) - 0(Both) 1c. LOC Commands (Open \T\ Closes Eyes/Aligner Typewriter) - 0(Both) 2. Best Gaze (Lateral Gaze Paresis) - 0(Normal) 3. Visual Field Loss - 0(No visual loss) 4. Facial Palsy - 0(Normal) 5a. Left Arm: Motor (10-second hold) - 0(No drift) 5b. Right Arm: Motor (10-second hold) - 0(No drift) 6a. Left Leg: Motor (5-second hold - always test supine) - 0(No drift) 6b. Right Leg: Motor (5-second hold - always test supine) - 0(No drift) 7. Limb Ataxia (finger/nose \T\ heel/oseguera - test with eyes open) - 0(Absent) 8. Sensory Loss (pinprick arms/legs/face) - 1(Mild to moderate loss) 9. Best Language: Aphasia (description/naming/reading) - 0(No aphasia) 10. Dysarthria (speech clarity - read or repeat words) - 0(Normal) 11. Extinction and Inattention (visual/tactile/auditory/spatial/personal) - 0(No abnormality) Initials: kenny Signatures: Dispatcher [employer] EDMS Juan A Martínez MD MD cha Wise, Tara, RN RN tw2 Irving Soria RN RN jd3 Corrections: (The following items were deleted from the chart) 11:45 10:38 MR STROKE PROTOCOL+MRI.RAD.BRZ ordered. EDMS EDMS 13:15 12:07 MR STROKE PROTOCOL+MRI.RAD.BRZ ordered. EDMS EDMS 13:41 12:08 MR STROKE PROTOCOL+MRI.RAD.BRZ ordered. EDMS EDMS
--- NOTE | 2022-01-02 13:36 | RAD REPORT ---
EXAM DESCRIPTION: MRI - Brain Wo Cont - 01/02/2022 1:14 pm CLINICAL HISTORY: Aphasia COMPARISON: Head Brain Wo Cont dated 01/02/2022; Carotid Artery Bilateral dated 01/02/2022 TECHNIQUE: Sagittal T1-weighted images were obtained along with axial PD, heavily T2-weighted and T2 -FLAIR images. Axial DWI and ADC mapping sequences were also obtained along with coronal heavily T2-w eighted images. FINDINGS: No intracranial hemorrhage, mass or acute infarction. There is no edema or shift of midlin e structures. No extra-axial fluid collections. Latif-matter/white matter junction is preserved. Signa l voids are seen as a normal finding in the major intracranial vessels. No measurable atrophy or spout liner helper drew ischemic change. Ventricles are normal. No tonsillar ectopia. No sella or supra sella mass. No globe or orbital content abnormality. Mastoid air cells and paranasal sinuses are clear. IMPRESSION: Negative non-contrast MRI of the Brain for acute or significant finding.
[2022-01-02 14:57] VITALS: TEMP 96.8
[2022-01-02 15:01] VITALS: O2SAT 100
[2022-01-02 15:02] VITALS: BP 160/88
--- NOTE | 2022-01-03 09:13 | EKG ---
Test Date: 2022-01-02 Test Time: 10:54:57 Retirement Officer: ALVARO MEASUREMENT RESULTS: Intervals: Rate: 59 CO: 154 QRSD: 80 QT: 414 QTc: 409 [place]: P: 64 CO: 154 QRS: 58 T: 49 INTERPRETIVE STATEMENTS: Sinus bradycardia Otherwise normal ECG Compared to ECG 10/02/2014 07:33:00 Sinus rhythm no longer present Electronically Signed On 01-03-22 09:10:48 CDT by Josh West
== END 2022-01-02 14:49 | disposition home or self-care (01) ==
LOC: ER 09:52
DX: R11.10 Vomiting, unspecified (principal); R20.2 Paresthesia of skin; R42 Dizziness and giddiness; E03.9 Hypothyroidism, unspecified; Z88.5 Allergy status to narcotic agent
CPT/HCPCS: 96365; 93005; 85025; 80048; 36415; 83735; 85610; 80076; 85652; 84484; 83880; 86140; 70450; 71045; 93880; 70551; 96375; 99284; J8597; J7030; J2405

== ENCOUNTER 2022-06-22 12:37 | Emergency (ER) | payer OTHER ==
--- OUTSIDE RECORDS SUMMARY | 2022-06-22 12:43 | XMS REPORT | Clinical Summary ---
:1960 Author Organization [facility] Address [address] [place] [address] Care Team Providers Name Role Phone Brandee Conley MD Primary Care Provider [phone] Rachelle Martinez MD Unavailable Allergies Active Allergy Reactions Severity Noted Date Comments Hydrocodone Rash Low 02/11/2021 Medications Medication Sig Dispensed Refills Start Date End Date Status cholecalciferol, Take 400 Units by 0 Active vitamin D3, (Vitamin mouth. D3) 5,000 units tab tablet Active Problems Problem Noted Date Abnormal findings on diagnostic imaging of breast 01/23 Overview: Imaging performed at [facility]: 12/31/2020 [facility] - 6-8 mm LEFT nodular density appearing slightly larger than 2019. - No microcalcifications. - No susipcious right breast findings. - LDMMG in 6 months recommended. Encounters Date Type Specialty Care Team Description 04/29/2022 Telephone Breast Surgical Oncology Allegra Walker RN after 06/22/2021 Immunizations Name Administration Dates Next Due Moderna SARS-CoV-2 Vaccination 10/23/2020 Surgical History Surgery Date Site/Laterality Comments ANTERIOR CRUCIATE LIGAMENT REPAIR Left HAND SURGERY Right Medical History Medical History Date Comments Hypertension Family History Medical History Relation Name Comments Liver cancer Mother Uterine cancer Mother Relation Name Status Comments Mother Social History Tobacco Use Types Packs/Day Years Used Date Smoking Tobacco: Never Smokeless Tobacco: Never Alcohol Use Standard Drinks/Week Comments Never 0 [...] drinks on one occasion? No t asked Sex Assigned at Date Recorded Not [...] Hormones - none Last Filed Vital Signs Not on file Plan of Treatment Health Maintenance Due Date Last Done Comments COVID-19 Vaccination (2 - Moderna series) 11/20/20202020 Results Not on fileafter 06/22/2021 Insurance Payer Benefit Plan / Subscriber ID Effective Dates Phone Addre ss Type Group [employer] MANAGED CIGNA HMO POS [id number] 2015-Present [id number] [place] [address] ([address]) Road [address] [place] [address] Ladan Greer Personal/Family Self 1960 [facility] (Home[address] [place], [place] [id number] Care Teams Quick Technician Relationship Specialty Start Date End Date Brandee Conley PCP - General Breast Surgery 01/24/21 MD Ritesh [address] [place] [id number] Rachelle Martinez, PCP - External Referring Obstetrics/Gynecology 01/24/[address] [place] [id number]
--- OUTSIDE RECORDS SUMMARY | 2022-06-22 12:44 | XMS REPORT | Continuity of Care Document ---
:1960 Author Organization [facility] [place] [facility] t Address [address] [place] [address] Dr. Moon. [address] [place] [address] Care Team Providers Name Role Phone [phone] Primary Care Physician Unavailable SYSTEM, PROVIDER NOT IN Attending Clinician Unavailable Rad Dickson MD Attending Clinician RAD DICKSON Attending Clinician Unavailable Aaron MOORE, October Attending Clinician Unavailable Pob, Ad[facility] Lab Main Attending Clinician Unavailable Kim Haider MD Attending Clinician KIM HAIDER Attending Clinician Unavailable Doctor Unassigned, [place] Attending Clinician Unavailable EZRA PARISI Attending Clinician Unavailable EZRA PARISI Attending Clinician Unavailable Ezra Parisi MD Attending Clinician MARGIE ESTRADA Attending Clinician Unavailable Margie Estrada MD Attending Clinician Felisha Pitts MD Attending Clinician Vince Benítez MD Attending Clinician RADIOLOGY Attending Clinician Unavailable Yael PARRA, Brandee Awad Attending Clinician [phone] Jerardo Morales Attending Clinician James Dill Attending Clinician Bell Melendez MD Attending Clinician BELL MELENDEZ Attending Clinician Unavailable JAMES KIM Attending Clinician Unavailable MARGIE ESTRADA Admitting Clinician Unavailable Payers Payer Name Policy Type Policy Number Effective Date Expiration Date S ouroneyda Problems Condition Condition Condition Status Onset Resolution Last Treating Co mments Source Name Details Category Date Date Treatment Clinician Date DDD DDD Disease Active 2020-07 Methodi (degenerat (degenerat 2- st norberto disc norberto disc 00:00: Hospit a disease), disease), 00 l lumbar lumbar Lumbar Lumbar Disease Active 2020-07 Methodi radiculopa rad[address]opa [address] thy thy 00:00: Hospita 00 l Decreased Decreased Disease Active 2020-07 Met hodi activity activity 2 st 00:00: Hospita 00 l Primary Primary Disease Active 2020-07 Methodi osteoarthr osteoarthr 2 st itis of itis of 00:00: Hospita both knees both knees 00 l Pain in Pain in Disease Active 2020-07 Methodi both knees both knees 1-04 st 00:00: Hospita 00 l Abnormal Abnormal Disease Active Overview: Un lexus findings findings -19 Formattin ity of on on 00:00: g of this [place] diagnostic diagnostic 00 note imaging of imaging of might be Anderso breast breast different n from the Cancer original. Center Imaging performed at [facility] t: 1 BSM[facility]- 6-8 mm LEFT nodular density appearing slightly larger than 2019.- No microcalc ification s.- No susipciou s right breast findings. - LDMMG in 6 months recommend ed. Primary Primary Disease Active 2018-07 Methodi osteoarthr osteoarthr 0-31 st itis of itis of 00:00: Hospita right knee right knee 00 l Tear of Tear of Disease Active 2017-07 Methodi meniscus meniscus 1 st of knee of knee 00:00: Hospita joint joint 00 l Chondromal Chondromal Disease Active 2017-07 M ethodi acia, acia, 1 st right knee right knee 00:00: Ho spita 00 l Primary Primary Disease Active 2018-1 Methodi localized localized 1 st osteoarthr osteoarthr 00:00: Ho spita osis of osis of 00 l right right lower leg lower leg Arthritis Arthritis Disease Active 2016-07 Met hodi of both of both 0-19 st knees knees 00:00: Hospita 00 l Chronic Chronic Disease Active 2016-07 Methodi pain of pain of 0-19 st both knees both knees 00:00: Ho spita 00 l Internal Internal Disease Active Metho di derangemen derangemen 4-10 st t of knee t of knee 00:00: Hosp loki 00 l Primary Primary Disease Active Methodi osteoarthr osteoarthr 4-10 st itis of itis of 00:00: Hospita left knee left knee 00 l Left knee Left knee Disease Active Met hodi pain pain 4-10 st 00:00: Hospita 00 l Arthritis Arthritis Disease Active Met hodi 4-10 st 00:00: Hospita 00 l Chest pain Chest pain Disease Active 2014-07 U nivers 09-21 ity of 00:00: [place] 00 Medical Branch Allergies, Adverse Reactions, Alerts Allergy Allergy Status Severity Reaction(s) Onset Inactive Treating Comm ents Source Name Type Date Date Clinician Hydrocod Propensi Active Rash Univer s one ty to 02-11 ity of adverse 00:00: [place] reaction 00 MD [facility] HYDROCOD DRUG Active Low Rash MD GUO INGREDI 02-11 Anderso 00:00: n 00 Hydrocod Propensi Active Itching Metho di one ty to 4-10 st adverse 00:00: Hospita reaction 00 l s to drug Hydrocod Propensi Active Itching 2014-07 Unive rs one ty to 09-21 ity of adverse 00:00: [place] reaction 00 Medical s Branch HYDROCOD DRUG Active ITCHING 2014-07 Univers ONE INGREDI 09-21 ity of 00:00: [place] 00 Medical Branch Family History Family Member Diagnosis Comments Start Date Stop Date Source Natural mother Liver cancer [facility] ty [facility] [place] MD Mauricio Rosas r [place] Natural mother Uterine cancer [facility] [place] MD Mauricio Rosas r [place] Natural mother Cancer [facility] Natural brother Diabetes [facility] Social History Social Habit Start Date Stop Date Quantity Comments Source History [facility] University o f Alcohol Std [place] MD Head r[facility] History [facility] o f Alcohol Binge [facility] History of Passive smoker [facility] tobacco use Hospital History [facility] o f Alcohol Comment [place] [facility] Exposure to 2022-05-26 2022-06-05 Not sure University [facility]-CoV-2 00:00:00 14:17:00 [place] [facility] (event) Branch Alcohol intake 2021-02-13 2021-02-13 Lifetime University of 00:00:00 00:00:00 non-drinker Claudine mcgregor (finding) [facility] History SDOH 2021-02-13 2021-02-13 1 University o f Alcohol Frequency 00:00:00 00:00:00 [facility] Tobacco use and 2021-02-13 2021-02-13 Smokeless tobacco Un iversity of exposure 00:00:00 00:00:00 non-user Claudine Sevilla son [facility] Sex Assigned At [birth year] [facility] 00:00[facility] 00:00:00 Hospital Smoking Status Start Date Stop Date Source Never smoked tobacco [facility] Medications Ordered Filled Start Stop Current Ordering Indication Dosage Frequency Signature Comments Components Source Medication Medication Date Date Medication? Clinician (SIG) Name Name amLODIPine Yes TAKE 1 Unive rs 2.5 mg 6-28 TABLET BY ity of tablet 00:00: MOUTH ONCE DAILY Medical (ONLY IF Branch TOP BP IS ABOVE 140) meclizine Yes TAKE 1 Univer s 25 mg 6-28 TABLET BY ity of tablet 00:00: MOUTH EVERY 8 Medical HOURS Branch NEEDED FOR DIZZINESS OR NAUSEA amLODIPine Yes TAKE 1 Unive rs 2.5 mg 6-28 TABLET BY ity of tablet 00:00: MOUTH ONCE DAILY Medical (ONLY IF Branch TOP BP IS ABOVE 140) meclizine Yes TAKE 1 Univer s 25 mg 6-28 TABLET BY ity of tablet 00:00: MOUTH EVERY 8 Medical HOURS Branch NEEDED FOR DIZZINESS OR NAUSEA amLODIPine Yes TAKE 1 Unive rs 2.5 mg 6-28 TABLET BY ity of tablet 00:00: MOUTH ONCE DAILY Medical (ONLY IF Branch TOP BP IS ABOVE 140) meclizine Yes TAKE 1 Univer s 25 mg 6-28 TABLET BY ity of tablet 00:00: MOUTH [place] 00 EVERY 8 Medical HOURS Branch NEEDED FOR DIZZINESS OR NAUSEA amLODIPine Yes TAKE 1 Unive rs 2.5 mg 6-28 TABLET BY ity of tablet 00:00: MOUTH ONCE [place] 00 DAILY Medical (ONLY IF Branch TOP BP IS ABOVE 140) meclizine Yes TAKE 1 Univer s 25 mg 6-28 TABLET BY ity of tablet 00:00: MOUTH [place] 00 EVERY 8 Medical HOURS Branch NEEDED FOR DIZZINESS OR NAUSEA amLODIPine Yes TAKE 1 Unive rs 2.5 mg 6-28 TABLET BY ity of tablet 00:00: MOUTH ONCE [place] 00 DAILY Medical (ONLY IF Branch TOP BP IS ABOVE 140) meclizine Yes TAKE 1 Univer s 25 mg 6-28 TABLET BY ity of tablet 00:00: MOUTH [place] 00 EVERY 8 Medical HOURS Branch NEEDED FOR DIZZINESS OR NAUSEA cholecalcif 2020-07 Yes 1{tbl} QD Take 1 Me thodi lyndsay, 2-[address] vitamin D3, 15:58: mouth Hospi ta (cholecalci 39 daily. l ferol, vit D3,,bulk,) 100,000 unit/gram powder traMADoL 2020-07- [place] 9[address] 50mg Q6H Take 1 Metho di (Ultram) 50 09-02 tablet (50 s t mg tablet 00:00: 05:59 mg total) Ho spita 00 :00 by mouth l every 6 (six) hours as needed for moderate pain for up to 10 days .acute pain. methylPREDN 2020-07- No follow Met hodi ISolone 09-[address] (MEDROL 00:00: 05:59 directions Hos naomi DOSEPAK) 4 00 :00 l mg tablet cholecalcif Yes 400U Take 400 Un lexus lyndsay, 7-20 Units by ity of vitamin D3, 13:17: [place]. [place] (Vitamin 46 MD D3) 5,000 Anderso units tab n tablet Cancer Center cholecalcif Yes 400U Take 400 Un lexus lyndsay, 7-20 Units by ity of vitamin D3, 13:17: [place] (Vitamin 46 MD D3) 5,000 Anderso units tab n tablet Cancer Center levothyroxi 2019-07 Yes 50ug Take 50 Uni [...] 50 mcg 10 every Medical tablet morning. [place] levothyroxi 2019-07 Yes 50ug Take 50 Uni vers ne 0-26 mcg by ity of (SYNTHROID) 14:50: mouth [place] 50 mcg 10 every Medical tablet morning. [place] amoxicillin Yes Univer s 875 mg 1-06 ity of tablet 00:00: [facility] amoxicillin 2017-0 Yes Univer s 875 mg 1-06 ity of tablet 00:00: [facility] amoxicillin 2017-0 Yes Univer s 875 mg 1-06 ity of tablet 00:00: [place] [facility] amoxicillin 2017-0 Yes Univer s 875 mg 1-06 ity of tablet 00:00: [place] [facility] amoxicillin 2017-0 Yes Univer s 875 mg 1-06 ity of tablet 00:00: [facility] lisinopril 2015-07 Yes Univers 5 mg tablet 2-26 ity of 00:00: [facility] lisinopril 2015-07 Yes Univers 5 mg tablet 2-26 ity of 00:00: [facility] lisinopril 2015-07 Yes Univers 5 mg tablet 2-26 ity of 00:00: [facility] lisinopril 2015-07 Yes Univers 5 mg tablet 2-26 ity of 00:00: [facility] lisinopril 2015-07 Yes Univers 5 mg tablet 2-26 ity of 00:00: [facility] Immunizations Ordered Filled Immunization Date Status Comments Sourc e Immunization Name Name Scarlett SARS-CoV-2 2020-10-23 Completed Univer sity of Vaccination 00:00:00 [facility] 2020-10-23 Completed Univer sity of Vaccination 00:00:00 Claudine Head [facility] Vital Signs Vital Name Observation Time Observation Value Comments Source Systolic blood 2022-02-17 14:39:00 138 mm[Hg] Univer sity of pressure [facility] Diastolic blood 2022-02-17 14:39:00 71 mm[Hg] Unive rsity of pressure [facility] Heart rate 2022-02-17 14:39:00 80 /min Universi ty [facility] Body weight 2022-02-17 14:39:00 68.493 kg Universi ty [facility] BMI 2022-02-17 14:39:00 27.62 kg/m2 Universi ty [facility] Oxygen saturation in 2022-02-17 14:39:00 97 /min University Arterial blood by [facility] Pulse oximetry Branch Body height 2021-07-24 21:57:00 157.5 cm [facility] Body weight 2021-07-24 21:57:00 68.04 kg [facility] BMI 2021-07-24 21:57:00 27.44 kg/m2 [facility] Systolic blood 2021-02-11 18:10:44 144 mm[Hg] Univer sity of pressure [facility] Diastolic blood 2021-02-11 18:10:44 84 mm[Hg] Unive rsity of pressure [facility] Heart rate 2021-02-11 18:10:44 88 /min Universi ty of [facility] Body temperature 2021-02-11 18:10:44 37.11 Geovanna Univ ersdena of [facility] Body height 2021-02-11 18:10:44 155 cm Universi ty of [facility]ine [facility] Body weight 2021-02-11 18:10:44 68.9 kg Universi ty of [facility] BMI 2021-02-11 18:10:44 28.68 kg/m2 Universi ty of [facility] Oxygen saturation in 2021-02-11 18:10:44 99 /min University [facility] blood by Claudine jones Pulse oximetry Cancer Center Procedures Procedure Date / Time Performing Clinician Source Performed BI ULTRASOUND BREAST 2022-06-05 21:45:45 Rad Dickson [facility] COMPLETE LEFT Medical Branch BI DIAGNOSTIC 2022-06-05 21:03:33 Rad Dickson [facility] TOMOSYNTHESIS BILATERAL Medical Branch ASSIGNMENT OF BENEFITS 2022-04-06 14:34:23 Doctor Unassigned, Un [facility] [place] [facility] [place] ARTHROCENTESIS 2021-07-09 21:30:00 [facility] [place] [facility]&/INJ MAJOR JT/BURSA W/O US MRI LUMBAR SPINE WO 2021-07-07 14:50:00 [place]ince [facility] CONTRAST XR LUMBAR SPINE 2 OR 3 VW 2021-07-02 22:28:03 Vince Benítez [facility] [place] ARTHROCENTESIS 2021-07-02 21:30:[address] [facility] ASPIR&/INJ MAJOR JT/BURSA W/O US [place] ARTHROCENTESIS 2021-06-25 21:30:[address] [facility] ASPIR&/INJ MAJOR JT/BURSA W/O US US BREAST COMPLETE 2021-02-11 15:06:00 Jerardo Webb [facility] BILATERAL MD Martínez [facility] MAMMO DIGITAL DIAGNOSTIC 2021-02-11 13:58:00 Jerardo Webb [facility] BILATERAL W LILY MD Mart[facility]nez [facility] Plan [facility] Care Planned Activity Planned Date Details Comments Source Future Scheduled 2022-06-03 COVID-19 Vaccination [facility] Test 10:37:53 (2 - Moderna series) MD Sonido mcgregor Cancer [code = COVID-19 Center Vaccination (2 - Moderna series)] Future Scheduled 2022-05-30 HEPATITIS B VACCINES [facility] Test 14:51:54 (1 of 3 - 3-dose series) [code = HEPATITIS B VACCINES (1 of 3 - 3-dose series)] Future Scheduled 2022-05-30 Hepatitis C screening [facility] Test 14:51:54 (procedure) [code = 053030074] Future Scheduled 2022-05-30 Screening for [facility] Test 14:51:54 malignant neoplasm of cervix (procedure) [code = 106229466] Future Scheduled 2022-05-30 BREAST CANCER [facility] Test 14:51:54 SCREENING [code = BREAST CANCER SCREENING] Future Scheduled 2022-05-30 COLONOSCOPY SCREENING [facility] Test 14:51:54 [code = COLONOSCOPY SCREENING] Future Scheduled 2022-05-30 SHINGLES VACCINES (1 [facility] Test 14:51:54 of 2) [code = SHINGLES VACCINES (1 of 2)] Future Scheduled 2022-05-30 COVID-19 VACCINE (2 - [facility] Test 14:51:54 Moderna series) [code = COVID-19 VACCINE (2 - Moderna series)] Future Scheduled 2022-05-30 INFLUENZA VACCINE Method [facility] Test 14:51:54 [code = INFLUENZA VACCINE] Future Scheduled 2021-07-04 COVID-19 Vaccination [facility] Test 06:40:28 (2 - Moderna 3-dose MD Sevilla son Cancer series) [code = Center COVID-19 Vaccination (2 - Moderna 3-dose series)] Encounters Start End Encounter Admission Attending Care Care Encounter Source Date/Time Date/Time Type Type Clinicians Facility Department ID 2021-01-16 Outpatient SYSTEM, [facility] [id number] 14:28:06 PROVIDER Frankie crews 2022-06-05 2022-06-05 [facility] 1.2.840.114 [id number] Univers 14:18:20 23:59:00 Encounter Vinitha SPECIALTY 350.1.13.10 ity of [facility] 4.2.7.2.686 Devanga s CENTER AT [id number] [address] 2022-06-05 2022-06-05 [facility] [id number] Univers 14:18:05 14:17:00 VINITHA ity [facility]ly [facility] 2022-06-05 2022-06-05 [facility] 1..840.114 [id number] Univers 14:10:00 14:17:00 Encounter Vinitha SPECIALTY 350.1.13.10 ity of C[place]2.686 [place] C[place] AT [id number] Vt dical VICTORY [address] [facility] 2022-04-29 2022-04-29 Telephone Aaron, 1.2.840.1 [id number] Univers 00:00:00 00:00:00 October 93332.1.1 ity of 3.412.2.7 [place] .3.093966 .8 [facility] [place] 2022-04-06 2022-04-06 Deburr Technician Neva, Terese Lab Main [facility] 1.2.8 40.114 [id number] Univers 10:45:00 11:00:00 Visit Kim Haider 350.1.13.10 ity of [place].2.[place].2.686 [place] [facility] [id number] Vt dical [facility] 353 [facility] 2022-04-06 2022-04-06 Outpatient Betzy HAIDER [facility] [id number] Univers 10:45:00 10:45:00 KIM [facility] 2022-04-06 2022-04-06 Orders Doctor REYEZ 1.2.840.114 [id number] Univers 00:00:00 00:00:00 Only Unassigned, RENAY 350.1.13.10 ity of [place] [facility] 4.2.7.2.686 Devang as [id number] [address] 2022-02-24 2022-02-24 Orders Doctor REYEZ 1.2.840.114 [id number] Univers 00:00:00 00:00:00 Only Unassigned, RENAY 350.1.13.10 ity of [place] [facility] 4.2.7.2.686 Devang as [id number] [address] 2022-02-17 2022-02-17 Outpatient EZRA ANDERSEN [facility] [id number] Univers 09:20:00 10:24:23 EZRA PARISI [facility] 2022-02-17 2022-02-[address] [facility] 1.2.840.114 [id number] Univers 09:20:00 10:24:23 Visit [facility] 350.1.13.10 ity [facility] 4.2.7.2.686 Devang as DEMARIO?BLEA [id number] Vt kristy KNEY 092 [facility] OFFICE [facility] 2022-02-05 2022-02-05 Deburr Technician Neva, Adc Lab Main [facility] 1.2.8 40.114 [id number] Univers 10:45:00 11:00:00 Visit Kim Haider 350.1.13.10 ity [facility] 4.2.7.2.686 [place] [facility] [id number] Vt kristy [facility] 353 [facility] 2022-02-05 2022-02-05 Outpatient R MELIZA [facility] [id number] Univers 10:45:00 10:45:00 [facility] 2022-[facility]-05 2022-02-05 Orders Doctor AISSATOU 1.2.840.114 [id number] Univers 00:00:00 00:00:00 Only Unassigned, RENAY 350.1.13.10 ity of [place] [facility] 4.2.7.2.686 Devang as [id number] [facility] 009 [place] 2021-11-17 2021-11-17 Outpatient R SEAN [facility] [id number] Univers 08:01:46 23:59:00 MARGIE ity [facility] 2021-11-17 2021-11-17 [facility] 1.2.840.114 [id number] Univers 08:00:00 23:59:00 Encounter Margie GONZALEZ 350.1.13.10 ity [facility] 4.2.7.2.686 [place] LAZBUDDIE [id number] [facility] 806 [place] 2021-10-10 2021-10-10 [facility] [id number] Univers 00:00:00 00:00:00 MARGIE fernandes [facility] 2021-10-08 2021-10-08 Deburr Technician Neva, Adc Lab Main [facility] 1.2.8 40.114 [id number] Univers 09:00:00 09:15:00 Visit Margie Estrada 350.1.13.10 [place]y [place] 4.2.7.2.[place] PROFESSIO [id number] Vt dical [address] 2021-10-08 2021-10-08 Outpatient R SEAN [facility] [id number] Univers 09:00:00 09:00:00 MARGIE ity of [facility] 2021-10-08 2021-10-08 Orders Doctor AISSATOU 1.2.840.114 [id number] Univers 00:00:00 00:00:00 Only Unassigned, RENAY 350.1.13.10 ity of [place] [facility] 4.2.7.2.686 Devang as [id number] [address] 2021-09-03 2021-09-03 Travel 1.2.840.1 1.2.130.825 [id number] Methodi 00:00:00 00:00:[address] 3.430.2.7 0.2.7.3.698 Ho spita .3.643832 084.8 l .8 2021-07-24 2021-07-24 Office [facility] 1.2.840.1 [id number] Methodi 15:20:00 16:25:45 Visit Felisha Hanks 25590.1.[address] 3.430.2.7 Hospit a .3.570436 l .8 2021-07-24 2021-07-24 Outpatient [facility] [id number] [place] 00:00:00 00:00:[address] FELIS[address] 2021-07-24 2021-07-24 Travel 1.2.840.1 1.2.165.193 [id number] Methodi 00:00:00 00:00:[address] 3.430.2.7 0.2.7.3.698 Ho spita .3.374342 084.8 l .8 2021-07-17 2021-07-17 Deburr Technician Neva, Adc Lab Main [facility] 1.2.8 40.114 [id number] [facility] 09:00:00 09:15:00 Visit Meliza Kim GONZALEZ 350.1.13.10 ity of [place] 4.2.7.2.686 [place] PROFESSIO [id number] Vt dical [address] 2021-07-17 2021-07-17 Outpatient R MELIZA [facility] [id number] [facility] 09:00:00 09:00:00 KIM itvarsha [facility] 2021-07-17 2021-07-17 Orders Doctor AISSATOU 1.2.840.[id number] [place] [address] 00:00:00 00:00:00 Only Unassigned, RENAY 350.1.13.10 ity of [place] [facility] 4.2.7.2.686 Devang as [id number] [address] 2021-07-09 2021-07-09 Office Vince Benítez 1.2.840.1 [id number] Methodi 15:30:00 16:07:[address]6929.1.[address] 3.430.2.7 Hospit a .3.049697 l .8 2021-07-09 2021-07-09 Travel 1.2.840.1 1.2.198.092 [id number] Methodi 00:00:00 00:00:[address] 3.430.2.7 0.2.7.3.698 Ho spita .3.310826 084.8 l .8 2021-07-09 2021-07-09 Outpatient VINCE BENÍTEZ [facility] [id number] [place] 00:00:00 00:00:[address] 2021-07-07 2021-07-07 Travel 1.2.840.1 1.2.435.517 [id number] Methodi 00:00:00 00:00:[address] 3.430.2.7 0.2.7.3.698 Ho spita .3.813737 084.8 l .8 2021-07-07 2021-07-07 Outpatient VINCE BENÍTEZ [facility] [id number] [place] 00:00:00 00:00:[address] 2021-07-02 2021-07-02 Office Vince Benítez 1.2.840.1 [id number] Methodi 15:30:00 17:26:34 [address] B. 22726.1.[address] 3.430.2.7 Hospit a .3.778453 l .8 2021-07-02 2021-07-02 Travel 1.2.840.1 1.2.091.083 [id number] Methodi 00:00:00 00:00:[address] 3.430.2.7 0.2.7.3.698 Ho spita .3.585945 084.8 l .8 2021-07-02 2021-07-02 Outpatient VINCE BENÍTEZ [facility] [id number] [place] 00:00:00 00:00:[address] 2021-07-02 2021-07-02 Outpatient VINCE BENÍTEZ [facility] [id number] [place] 00:00:00 00:00:[address] 2021-06-25 2021-06-25 Office Vince Benítez 1.2.840.1 [id number] Methodi 15:30:00 16:45:[address] 76697.1.[address] 3.430.2.7 Hospit a .3.850247 l .8 2021-06-25 2021-06-25 Travel 1.2.840.1 1.2.198.420 [id number] Methodi 00:00:00 00:00:[address] 3.430.2.7 0.2.7.3.698 Ho spita .3.798049 084.8 l .8 2021-06-25 2021-06-25 Outpatient VINCE BENÍTEZ [facility] [id number] [place] 00:00:00 00:00:[address] 2021-05-28 2021-05-28 Outpatient VINCE BENÍTEZ [facility] [id number] [place] 00:00:00 00:00:[address] 2021-05-28 2021-05-28 Outpatient VINCE BENÍTEZ [facility] [id number] [place] 00:00:00 00:00:[address] 2021-04-21 2021-04-21 Outpatient R RADIOLOGY [facility] [id number] Univers 00:00:00 00:00:00 ity of [facility] 2021 2021 [facility] 1.2.840.114 [id number] Univers 16:09:32 23:59:00 Encounter Rad Gonzalez 350.1.13.10 ity of [place] 4.2.7.2.686 [facility] [id number] [facility] 807 [place] 2021 2021 Outpatient R [facility] [id number] [facility] 00:00:00 00:00:00 RAD ity of [facility] 2021-02-11 2021-02-11 Ancillary EL Refinetti, 1.2.840.1 [id number] Univers 20:05:00 20:10:00 Procedure Brandee Dover 99565.1.1 ity of [place] 3.412.2.7 [place] .3.899975 MD Mccarthy [facility] 2021-02-11 2021-02-11 Ancillary EL Refinenashi, 1.2.840.1 [id number] Univers 20:00:00 20:05:00 Procedure Brandee Deras50.1.1 ity of [place] 3.412.2.7 [place] .3.784129 MD Moore8 [facility] 2021-02-11 2021-02-11 Office EL Refinetti, 1.2.840.1 [id number] Univers 13:00:00 15:01:40 Visit Brandee Dover 97559.1.1 it y of [place] 3.412.2.7 [place] .3.251328 MD Moore8 [facility] 2021-02-11 2021-02-11 NPR EL 1.2.840.1 [id number] Univers 12:30:00 12:59:14 00210.1.1 ity of 3.412.2.7 [place] .3.418908 MD Moore8 [facility] 2021-02-11 2021-02-11 Ancillary EL Tracey, 1.2.840.1 [id number] Univers 09:30:00 11:00:00 Procedure Jerardo 83909.1.1 it y of 3.412.2.7 [place] .3.630558 MD Moore8 [facility] 2021-02-11 2021-02-11 Ancillary EL Tracey, 1.2.840.1 [id number] Univers 08:30:00 09:30:00 Procedure Jearrdo 45595.1.1 it y of 3.412.2.7 [place] .3.524509 MD [facility] 2021-02-11 2021-02-11 Travel 1.2.840.1 1.2.081.454 [id number] Univers 00:00:00 00:00:00 23658.1.1 350.1.13.41 ity of 3.412.2.7 2.[place]7.3.698 [place] .3.755282 084.8 MD [facility] 2021-02-10 2021-02-10 Orders Yael, 1.2.840.1 [id number] Univers 00:00:00 00:00:00 Only Kaylene 07422.1.1 it y of [place] 3.412.2.7 [place] .3.373135 MD [facility] 2021-02-10 2021-02-10 Orders Tracey 1.2.840.1 [id number] Univers 00:00:00 00:00:00 Only Jerardo 43125.1.1 ity of 3.412.2.7 [place] .3.217081 MD [facility] 2021-02-09 2021-02-09 Orders Yael 1.2.840.1 [id number] Univers 00:00:00 00:00:00 Only Brandee Dover 39187.1.1 it y of [place] 3.412.2.7 [place] .3.183271 MD Moore8 [facility] 2021-01-16 2021-01-[address] [facility] 1.2.840.114 [id number] Univers 10:20:40 10:35:40 Visit Bell Melendez YumZing 350.1.13.10 ity of Surgical 4.2.7.2.686 Devang as Specialti [phone] Vt dical es 198 [facility] 2021-01-16 2021-01-16 [facility] [id number] Univers 10:15:00 10:15:00 BELL fernandes [facility]ly [facility] 2021-01-06 2021-01-06 Deburr Technician Neva, [facility] Main [facility] 1.2.8 40.114 [id number] Univers 08:58:33 09:13:33 Visit Rad Dickson 350.1.13.10 it[place] [phone] Vt dical nal 353 [facility] 2021-01-06 2021-01-06 Outpatient Betzy [facility] [id number] Univers 09:00:00 09:00:00 RAD fernandse Formerly [facility] 2021-01-06 2021-01-06 Orders Doctor REYEZ 1.2.840.114 [id number] Univers 00:00:00 00:00:00 Only Unassigned, RENAY 350.1.13.10 ity of [facility] 4.2.7.2.686 Devang as [id number] [address] 2021-01-01 2021-01-[address] [facility] 1.2.840.114 [id number] Univers 00:00:00 00:00:00 Bell YumZing 350.1.13.10 it y of Surgical 4.2.7.2.686 Devang as Specialti [phone] Me dical es 198 [facility] 2020-12-25 2020-12-25 Outpatient R [facility] [id number] Univers 15:30:00 15:30:00 BELL ity of [facility] 2020-12-25 2020-12-25 Office [facility] 1.2.256.791 [id number] Univers 13:31:18 14:06:12 Visit Bell [facility] 350.1.13.10 it y of Surgical 4.2.7.2.686 Devang as Specialti [phone] Vt dical es 198 [facility] 2020-12-17 2020-12-17 Orders Doctor REYEZ 1.2.840.114 [id number] Univers 00:00:00 00:00:00 Only Unassigned, RENAY 350.1.13.10 ity of [facility] 4.2.7.2.686 Devang as [phone] [address] 2020-11-05 2020-11-05 Orders Doctor REYEZ 1.2.840.114 [id number] Univers 00:00:00 00:00:00 Only Unassigned, RENAY 350.1.13.10 ity of [facility] 4.2.7.2.686 Devang as [id number] [address] 2020-10-03 2020-10-03 Orders Doctor REYEZ 1.2.840.114 [id number] Univers 00:00:00 00:00:00 Only Unassigned, RENAY 350.1.13.10 ity of [facility] 4.2.7.2.686 Devang as [id number] [address] 2020-09-25 2020-09-25 Orders Doctor AISSATOU 1.2.840.114 [id number] Univers 00:00:00 00:00:00 Only Unassigned, RENAY 350.1.13.10 ity of [facility] 4.2.7.2.686 Devang as [id number] [address] 2020-09-16 2020-09-16 [facility] 1.2.840.114 [id number] Univers 14:23:38 23:59:00 Encounter Bell Mcintosh 350.1.13.10 ity of Surgical 4.2.7.2.686 Devang as Specialti [phone] Me dical es 809 [facility] 2020-09-16 2020-09-16 Outpatient R [facility]ENDEZ [facility] [id number] Univers 14:23:38 23:59:00 BELL itvarsha Formerly [facility] 2020-09-16 2020-09-[address] [facility] 1.2.840.114 [id number] Univers 14:13:59 15:12:27 Visit [facility] 350.1.13.10 it y of Surgical 4.2.7.2.686 Devang as Specialti [phone] Vt dical es 198 [facility] 2020-08-22 2020-08-22 Office [facility] 1.2.840.114 [id number] Univers 10:35:37 10:50:37 Visit [facility] 350.1.13.10 it y of Surgical 4.2.7.2.686 Devang as Specialti [id number] Vt dical es 198 [facility] 2020-08-22 2020-08-22 Outpatient R [facility] [id number] Univers 10:30:00 10:30:00 [facility]-08-05 2020-08-05 Office [facility] 1.2.840.114 [id number] Univers 13:39:50 13:54:50 Visit [facility] 350.1.13.10 it y of Surgical 4.2.7.2.686 Devang as Specialti [phone] Vt dical es 198 [facility] 2020-08-05 2020-08-05 Outpatient R [facility] [id number] Univers 13:30:00 13:30:00 [facility] 2020-07-23 2020-07-23 [facility] 1.2.840.114 [id number] Univers 10:29:15 23:59:00 Encounter [facility] 350.1.13.10 ity of Surgical 4.2.7.2.686 Devang as Specialti [id number] Vt dical es 809 [facility] 2020-07-23 2020-07-23 Outpatient R [facility] [id number] Univers 10:29:15 23:59:00 JAMES ity [facility] 2020-07-23 2020-07-23 Office [facility] 1.2.840.114 [id number] Univers 09:37:23 09:52:23 Visit [facility] 350.1.13.10 it y of Surgical 4.2.7.2.686 Devang as Specialti [id number] Me dical es 198 [facility] 2020-07-11 2020-07-11 [facility] 1.2.840.114 [id number] Univers 15:39:36 23:59:00 Encounter [facility] 350.1.13.10 ity of Surgical 4.2.7.2.686 Devang as Specialti [id number] Me dical es 809 [facility] 2020-07-11 2020-07-11 Outpatient R [facility] [id number] Univers 15:39:36 23:59:00 JAMES ity [facility] 2020-07-11 2020-07-11 [facility] 1.2.840.114 [id number] Univers 15:39:15 23:59:00 Encounter [facility] 350.1.13.10 ity of Surgical 4.2.7.2.686 Devang as Specialti [phone] Me dical es 809 [facility] 2020-07-11 2020-07-11 Office [facility] 1.2.840.114 [id number] Univers 14:50:10 16:16:16 Visit [facility] 350.1.13.10 it y of Surgical 4.2.7.2.686 Devang as Specialti [phone] Me dical es 198 [facility] 2020-06-05 2020-06-05 Deburr Technician Neva, [facility] 1.2.8 40.114 [id number] Univers 08:25:11 08:40:11 Visit Rad Dickson [place] 350.1.13.10 [place] [phone] Me dical nal 353 [facility] 2020-06-05 2020-06-05 Outpatient R [facility] [id number] Univers 08:30:00 08:30:00 VINITHSiva fernandes [facility]ly [facility] 2020-05-20 2020-05-20 Hospital [facility] 1.2.840.114 [id number] Univers 13:51:50 23:59:00 Encounter Bell Gonzalez 350.1.13.10 [place] [phone] [facility] fabio [address] 2020-05-20 2020-05-20 Office [facility] 1.2.941.673 [id number] Univers 14:41:44 15:20:24 Visit Bell Mcintosh 350.1.13.10 it y of Surgical 4.2.7.2.686 Devang as Specialti [id number] Vt dical es 198 [facility] 2020-05-20 2020-05-20 Outpatient R [facility] [id number] Univers 14:45:00 14:45:00 BELL fernandes [facility] 2020-05-20 2020-05-20 Telephone [facility] 1.2.840.114 [id number] Univers 00:00:00 00:00:00 Bell Mcintosh 350.1.13.10 it y of Surgical 4.2.7.2.686 Devang as Specialti [phone] Vt dical es 198 [facility] 2020-05-20 2020-05-20 Orders Doctor AISSATOU 1.2.840.114 [id number] Univers 00:00:00 00:00:00 Only Unassigned, RENAY 350.1.13.10 ity of [facility] 4.2.7.2.686 Devang as [phone] [facility] [address] Results This patient has no known results.
[2022-06-22] MEDS ORDERED: ASPIRIN 81 MG CHEWABLE TABLET ONE (13:16)
--- NOTE | 2022-06-22 13:39 | RAD REPORT ---
EXAM DESCRIPTION: RAD - Chest Single View - 06/22/2022 1:29 pm CLINICAL HISTORY: CHEST PAIN COMPARISON: Chest Single View dated 01/02/2022; ABDOMEN 1 VIEW KUB dated 05/02/2015; CHEST SINGLE VIEW dated 10/02/2014; CHEST PA AND LAT 2 VIEW dated 09/15/2013 FINDINGS: Lines: None. Lungs: No evidence of edema or pneumonia. Pleural: No significant pleural effusions or pneumothorax. Cardiac: The heart size is within normal limits. Mediastinum: Within normal limits. Bones: No acute fractures. Other: None IMPRESSION: No acute cardiopulmonary disease.
--- NOTE | 2022-06-22 14:06 | RAD REPORT ---
EXAM DESCRIPTION: US - CP - 06/22/2022 1:53 pm CLINICAL HISTORY: PAIN COMPARISON: Carotid Artery Bilateral dated 01/02/2022 TECHNIQUE: Real-time sonographic evaluation of both carotid systems was performed. Doppler interroga tion was performed with waveform tracing bilaterally. FINDINGS: Normal high resistance waveforms are noted in both external carotid arteries. The common c arotid arteries and internal carotid arteries show normal low resistance waveforms. No significant plaque formation is seen. Peak systolic and end diastolic velocity values and the ICA/ CCA ratios are in the non-hemodynamically significant range. Antegrade flow seen in both vertebral arteries. IMPRESSION: No significant atherosclerotic changes noted. No evidence of a hemodynamically significant stenosis.
[2022-06-22 16:43] LABS: Absolute Lymphocytes (CBC) 2.7 K/uL (0.7-4.9); Hematocrit 41.7 % (36.0-45.0); Lymphocytes % 36.9 % (15.3-44.8); MPV 6.9 fL (7.6-11.3); RBC Red Blood Cell Count 4.85 M/uL (3.86-4.86)
[2022-06-22 16:49] LABS: Protime INR 1.13
[2022-06-22 17:04] LABS: ALT/SGPT 38 U/L (12-78); AST/SGOT 23 U/L (15-37); Albumin 3.7 g/dL (3.4-5.0); Alkaline Phosphatase 131 U/L (45-117); BUN Blood Urea Nitrogen 12 mg/dL (7-18); Bicarbonate 27 mmol/L (21-32); Bilirubin Total 0.3 mg/dL (0.2-1.0); Glomerular Filtration Rate 97 ml/min (=/>90); Glucose Level 94 mg/dL (74-106); Magnesium 2.5 mg/dL (1.8-2.4); NT PRO-BNP 68 pg/mL (<125); Potassium 3.7 mmol/L (3.5-5.1); Protein, Total 7.9 g/dL (6.4-8.2); Sodium Level 139 mmol/L (136-145); Troponin High Sensitivity 5.9 pg/mL (<58.9)
[2022-06-22 17:06] LABS: Bilirubin Direct < 0.1 mg/dL (0-0.2)
--- NOTE | 2022-06-22 17:13 | ER ---
Nurse's Notes [facility] Name: Ladan Greer Age: 62 yrs Sex: Female : 1960 Arrival Date: 06/22/2022 Time: 12:40 Bed 17 Private MD: Diagnosis: Chest pain, unspecified Presentation: 06/22 13:06 Chief complaint: Patient states: pain in Chest and L arm and SOB that began 5 days ago. ss Coronavirus screen: Client denies travel out of the [place] in the last 14 days. Ebola Screen: Patient denies exposure to infectious person. Patient denies travel to an Ebola-affected area in the 21 days before illness onset. Initial Sepsis Screen: Does the patient meet any 2 criteria? No. Patient's initial sepsis screen is negative. Does the patient have a suspected source of infection? No. Patient's initial sepsis screen is negative. Risk Assessment: Do you want to hurt yourself or someone else? Patient reports no desire to harm self or others. Onset of symptoms was June 17, 2022. 13:06 Method Of Arrival: Ambulatory ss 13:06 Acuity: VENITA 3 ss Historical: - Allergies: 13:07 Hydrocodone-Acetaminophen; ss - Home Meds: 13:07 None [Active]; ss - PMHx: 13:07 Hypothyroidism; Hypertensive disorder; ss - PSHx: 13:07 Cholecystectomy; ss - Immunization history:: Client reports receiving the 2nd dose of the Covid vaccine. - Social history:: Smoking status: Patient denies any tobacco usage or history of. Screenin:30 Abuse screen: Denies threats or abuse. Nutritional screening: No deficits noted. vg1 Tuberculosis screening: No symptoms or risk factors identified. Fall Risk No fall in past 12 months (0 pts). No secondary diagnosis (0 pts). IV access (20 points). Ambulatory Aid- None/Bed Rest/Nurse Assist (0 pts). Gait- Normal/Bed Rest/Wheelchair (0 pts) Mental Status- Oriented to own ability (0 pts). Total Figueroa Fall Scale indicates No Risk (0-24 pts). Assessment: 16:25 General: Appears in no apparent distress. comfortable, Behavior is calm, cooperative. vg1 Pain: Complains of pain in chest Pain radiates to left side of jaw and back Pain currently is 5 out of 10 on a pain scale. Pain began 4-5 days ago. Neuro: Level of Consciousness is awake, alert, obeys commands, Oriented to person, place, time, situation. Cardiovascular: Reports chest pain, nausea, Patient's skin is warm and dry. Respiratory: Reports cough that is since 06/02/22 Airway is patent Respiratory effort is even, unlabored. GI: Abdomen is flat, Reports nausea, Patient currently denies diarrhea, vomiting. : No signs and/or symptoms were reported regarding the genitourinary system. EENT: No signs and/or symptoms were reported regarding the EENT system. Derm: Skin is pink, warm \T\ dry. Musculoskeletal: Circulation, motion, and sensation intact. 17:25 Reassessment: Patient appears in no apparent distress at this time. No changes from vg1 previously documented assessment. Patient and/or family updated on plan of care and expected duration. Pain level reassessed. Patient is alert, oriented x 3, equal unlabored respirations, skin warm/dry/pink. 18:12 Reassessment: Patient appears in no apparent distress at this time. No changes from vg1 previously documented assessment. Patient is alert, oriented x 3, equal unlabored respirations, skin warm/dry/pink. Vital Signs: 13:06 BP 139 / 90; Pulse 85; Resp 16; Temp 97.7(O); Pulse Ox 98% on R/A; Weight 68.49 kg; ss Height 5 ft. 2 in. (157.48 cm); Pain 7/10; 16:30 BP 151 / 76; Pulse 60; Resp 15; Pulse Ox 100% on R/A; vg1 13:06 Body Mass Index 27.62 (68.49 kg, 157.48 cm) ED Course: 12:40 Patient arrived in ED. am2 12:49 [facility]-C [facility] snw 12:49 Giovanni Dejesus DO is Attending Physician. snw 13:07 Triage completed. ss 13:07 Arm band placed on right wrist. ss 13:28 XRAY Chest (1 view) In Process Unspecified. EDMS 13:54 US Carotid Artery Bilateral In Process Unspecified. EDMS 15:56 Bailee Alaniz, RN is Primary Nurse. vg1 16:30 Patient has correct armband on for positive identification. Placed in gown. Bed in low vg1 position. Call light in reach. Side rails up X 1. Client placed on continuous cardiac and pulse oximetry monitoring. NIBP monitoring applied. 16:36 Initial lab(s) drawn, by me, sent to lab. Inserted saline lock: 22 gauge in right vg1 antecubital area, using aseptic technique. Blood collected. 16:36 No provider procedures requiring assistance completed. Patient maintains SpO2 vg1 saturation greater than 95% on room air. Administered Medications: 13:16 Drug: Aspirin Chewable Tablet 324 mg Route: PO; ss 18:12 Follow up: Response: No adverse reaction vg1 Medication: 16:30 VIS not applicable for this client. vg1 Outcome: 17:12 Discharge ordered by . tristan 18:12 Patient left the ED. vg1 Signatures: Dispatcher [employer] EDMS Vida Lehman, LOCKER ROOM MANAGER-C LOCKER ROOM MANAGER-Uyen Onofre RN RN Arabella Fenton Victoria, RN RN vg1 Corrections: (The following items were deleted from the chart) 13:08 13:07 PSHx: hysterectomy; ss ss
--- NOTE | 2022-06-22 17:13 | EDPHYS ---
Physician Documentation [facility] Name: Ladan Greer Age: 62 yrs Sex: Female : 1960 Arrival Date: 06/22/2022 Time: 12:40 Bed 17 Private MD: ED Physician Giovanni Dejesus HPI: 06/22 14:15 This 62 yrs old Female presents to ER via Ambulatory with complaints of Chest snw Pain, Breathing Difficulty, Arm Pain - left. 14:15 The patient or guardian reports chest pain that is located primarily in the anterior snw chest wall, left. Onset: 5 day(s) ago, and became worse yesterday, and became persistent. The pain radiates to left neck. Associated signs and symptoms: Pertinent positives: nausea, shortness of breath. The chest pain is described as aching, squeezing. Duration: The patient or guardian reports a single episode. Modifying factors: The symptoms are alleviated by nothing. Severity of pain: At its worst the pain was moderate. The patient has not experienced similar symptoms in the past. The patient has not recently seen a physician. Historical: - Allergies: 13:07 Hydrocodone-Acetaminophen; ss - Home Meds: 13:07 None [Active]; ss - PMHx: 13:07 Hypothyroidism; Hypertensive disorder; ss - PSHx: 13:07 Cholecystectomy; ss - Immunization history:: Client reports receiving the 2nd dose of the Covid vaccine. - Social history:: Smoking status: Patient denies any tobacco usage or history of. ROS: 14:13 Constitutional: Negative for fever, chills, and weight loss, Eyes: Negative for injury, snw pain, redness, and discharge, ENT: Negative for injury, pain, and discharge, Neck: Negative for injury, pain, and swelling. 14:13 Respiratory: Negative for shortness of breath, cough, wheezing, and pleuritic chest pain. 14:13 Respiratory: Positive for shortness of breath, negative for cough, wheezing, and pleuritic chest pain, Back: Negative for injury and pain, : Negative for injury, bleeding, discharge, and swelling, MS/Extremity: Negative for injury and deformity, Skin: Negative for injury, rash, and discoloration, Neuro: Negative for headache, weakness, numbness, tingling, and seizure. 14:13 Cardiovascular: Positive for chest pain, of the left jaw and chest. 14:13 Abdomen/GI: Positive for nausea. Exam: 14:12 Constitutional: This is a well developed, well nourished patient who is awake, alert, snw and in no acute distress. Head/Face: Normocephalic, atraumatic. Eyes: Pupils equal round and reactive to light, extra-ocular motions intact. Lids and lashes normal. Conjunctiva and sclera are non-icteric and not injected. Cornea within normal limits. Periorbital areas with no swelling, redness, or edema. ENT: Nares patent. No nasal discharge, no septal abnormalities noted. Tympanic membranes are normal and external auditory canals are clear. Oropharynx with no redness, swelling, or masses, exudates, or evidence of obstruction, uvula midline. Mucous membranes moist. Neck: Trachea midline, no thyromegaly or masses palpated, and no cervical lymphadenopathy. Supple, full range of motion without nuchal rigidity, or vertebral point tenderness. No Meningismus. Chest/axilla: Normal chest wall appearance and motion. Nontender with no deformity. No lesions are appreciated. Cardiovascular: Regular rate and rhythm with a normal S1 and S2. No gallops, murmurs, or rubs. Normal PMI, no JVD. No pulse deficits. Respiratory: Lungs have equal breath sounds bilaterally, clear to auscultation and percussion. No rales, rhonchi or wheezes noted. No increased work of breathing, no retractions or nasal flaring. Abdomen/GI: Soft, non-tender, with normal bowel sounds. No distension or tympany. No guarding or rebound. No evidence of tenderness throughout. Back: No spinal tenderness. No costovertebral tenderness. Full range of motion. Skin: Warm, dry with normal turgor. Normal color with no rashes, no lesions, and no evidence of cellulitis. MS/ Extremity: Pulses equal, no cyanosis. Neurovascular intact. Full, normal range of motion. Neuro: Awake and alert, GCS 15, oriented to person, place, time, and situation. Cranial nerves II-XII grossly intact. Motor strength 5/5 in all extremities. Sensory grossly intact. Cerebellar exam normal. Normal gait. Vital Signs: 13:06 BP 139 / 90; Pulse 85; Resp 16; Temp 97.7(O); Pulse Ox 98% on R/A; Weight 68.49 kg; ss Height 5 ft. 2 in. (157.48 cm); Pain 7/10; 16:30 BP 151 / 76; Pulse 60; Resp 15; Pulse Ox 100% on R/A; vg1 13:06 Body Mass Index 27.62 (68.49 kg, 157.48 cm) ss MDM: 13:15 Patient medically screened. snw 14:15 Data reviewed: vital signs, nurses notes. Data interpreted: Pulse oximetry: on room air snw is 98 %. Interpretation: normal. Counseling: I had a detailed discussion with the patient and/or guardian regarding: the historical points, exam findings, and any diagnostic results supporting the discharge/admit diagnosis, the presence of at least one elevated blood pressure reading (>120/80) during this emergency department visit. 06/22 12:49 Order name: Basic Metabolic Panel; Complete Time: 17:11 snw 06/22 12:49 Order name: CBC with Diff; Complete Time: 16:47 snw 06/22 12:49 Order name: LFT's; Complete Time: 17:11 snw 06/22 12:49 Order name: Magnesium; Complete Time: 17:11 snw 06/22 12:49 Order name: NT PRO-BNP; Complete Time: 17:11 snw 06/22 12:49 Order name: PT-INR; Complete Time: 16:49 snw 06/22 12:49 Order name: Troponin HS; Complete Time: 17:11 snw 06/22 12:49 Order name: XRAY Chest (1 view); Complete Time: 14:02 snw 06/22 12:49 Order name: EKG; Complete Time: 12:50 snw 06/22 12:49 Order name: Cardiac monitoring; Complete Time: 16:38 snw 06/22 12:49 Order name: EKG - Nurse/Tech; Complete Time: 13:15 snw 06/22 12:49 Order name: IV Saline Lock; Complete Time: 16:38 snw 06/22 13:15 Order name: US Carotid Artery Bilateral; Complete Time: 14:09 snw 06/22 12:49 Order name: Labs collected and sent; Complete Time: 16:38 snw 06/22 12:49 Order name: O2 Per Protocol; Complete Time: 16:38 snw 06/22 12:49 Order name: O2 Sat Monitoring; Complete Time: 16:38 snw EC:15 Rate is 74 beats/min. Rhythm is regular. QRS [place] is Normal. NM interval is normal. QRS snw interval is normal. No ST changes noted. Clinical impression: Normal ECG. Administered Medications: 13:16 Drug: Aspirin Chewable Tablet 324 mg Route: PO; ss 18:12 Follow up: Response: No adverse reaction vg1 Disposition: 19:16 Co-signature as Attending Physician, Giovanni Dejesus DO I was immediately available on-site ms3 in the Emergency Department for consultation in the care of the patient.. Disposition Summary: 06/22/22 17:12 Discharge Ordered Location: Home snw Condition: Stable snw Diagnosis - Chest pain, unspecified snw Followup: snw - With: Emergency Department - When: As needed - Reason: Worsening of condition Followup: snw - With: Private Physician - When: 2 - 3 days - Reason: Recheck today's complaints, Continuance of care, Re-evaluation by your physician Discharge Instructions: - Discharge Summary Sheet snw - Nonspecific Chest Pain, Adult snw - Hypertension, Adult snw - Aspirin and Your Heart snw Forms: - Medication Reconciliation Form snw - Thank You Letter snw - Antibiotic Education snw - Prescription Opioid Use snw Prescriptions: - Pepcid 20 mg Oral Tablet - take 1 tablet by ORAL route once daily; 20 tablet; Refills: 0, Product snw Selection Permitted Signatures: Dispatcher [employer] Vida Borges, CHIEF CARDIOPULMONARY TECHNOLOGIST-C CHIEF CARDIOPULMONARY TECHNOLOGIST-Csnw Uyen Kearney RN RN ss Sims, Marcus, DO DO ms3 Bailee Alaniz RN vg1 Corrections: (The following items were deleted from the chart) 13:08 13:07 PSHx: hysterectomy; [facility] 17:13 17:12 Headache snw snw
[2022-06-22 18:17] VITALS: TEMP 97.7
[2022-06-22 18:18] VITALS: BP 151/76; O2SAT 100
--- NOTE | 2022-06-24 16:31 | EKG ---
Test Date: 2022-06-22 Test Time: 13:13:26 Donor Services Specialist: YAHAIRA MEASUREMENT RESULTS: Intervals: Rate: 74 WV: 154 QRSD: 72 QT: 382 QTc: 424 [place]: P: 37 WV: 154 QRS: 16 T: 31 INTERPRETIVE STATEMENTS: Normal sinus rhythm Normal ECG Compared to ECG 01/02/2022 10:54:57 Sinus bradycardia no longer present Electronically Signed On 06-24-22 16:23:49 HULL MOLDER by Josh West
== END 2022-06-22 18:12 | disposition home or self-care (01) ==
LOC: ER 12:37
DX: R07.9 Chest pain, unspecified (principal); I10 Essential (primary) hypertension; Z88.5 Allergy status to narcotic agent
CPT/HCPCS: 36415; 71045; 80048; 80076; 83735; 83880; 84484; 85025; 85610; 93005; 93880; 99284